=== PATIENT | male | born 1935 | race Caucasian/White ===

== ENCOUNTER → 2023-10-17 14:30 | Outpatient (REF) | payer OTHER, SELFPAY | LOC: DHCBS MAIN 14:30 | PROVIDERS: ATTENDING PHYSICIAN Internal Medicine Cardiovascular Disease; FAMILY PHYSICIAN Internal Medicine Gastroenterology | DX: I47.29 Other ventricular tachycardia (principal); I45.10 Unspecified right bundle-branch block; I34.0 Nonrheumatic mitral (valve) insufficiency | CPT/HCPCS: 93306 ==

== ENCOUNTER 2024-07-16 08:22 | Emergency (ER) | payer OTHER, SELFPAY ==
--- NOTE | 2024-07-16 08:25 | ED.GENMED ---
History of Present Illness
General
Chief Complaint: Fall
Time Seen by Provider: 07/16/24 08:24
History of Present Illness
History of Present Illness:
TIME OF INITIAL ENCOUNTER: 8:30 AM
HPI: The patient has a history of cerebral palsy and Parkinson's and normally uses a walker. Overnight, he tripped and fell while that he feels related to uneven quan. This morning he was unable to still get back up and has been having low
back pain. was unable to get him up today and EMS was called. EMS did get him up and he was able to walk with a walker before getting into the ambulance.
EXAM:
GENERAL: Well appearing in no distress
CERVICAL SPINE: No midline c-spine tenderness with excellent AROM
HEAD: No evidence of craniofacial trauma
CHEST: No chest wall tenderness, normal heart sounds
LUNGS: Equal lung sounds, no respiratory distress
ABDOMEN: No abdominal tenderness, no peritoneal signs
BACK: No midline T-spine tenderness, there is some very mild upper L-spine tenderness, there is no coccygeal tenderness
EXTREMITIES: Chronic deformity noted to the left upper extremity, no new trauma, decreased active range of motion left greater than right upper extremities
NEURO: Decreased strength equally in all extremities, some mild cognitive deficits noted,
NUMBER AND COMPLEXITY OF PROBLEMS ADDRESSED AT THE ENCOUNTER
� Chronic conditions affecting care: Cerebral palsy, Parkinson's,
� Acute Exacerbation and/or Progression of Chronic Illness: This is an acute problem
� Differential Diagnosis includes: Lumbar spine fracture, intracranial hemorrhage, minor head injury, anemia, rhabdomyolysis
AMOUNT AND/OR COMPLEXITY OF DATA TO BE REVIEWED AND ANALYZED
� I performed an independent evaluation of and my interpretation is:
EKG:
CT: CT shows no acute abnormality, no change from prior
X-rays: L1 and L4 compression fractures noted
Laboratory Studies: White count 11.8, hemoglobin 14.5, BUN 38, CK is 158
Other:
� Review of other/old records: I reviewed records, the patient was hospitalized for an acute urinary tract infection this past July
� Clinical information was obtained by an independent historian: I spoke to EMS upon patient arrival
� Prescriptions/Medications Considered but not given:
� Further testing considered but not performed:
RISK OF COMPLICATIONS AND/OR MORBIDITY OR MORTALITY OF PATIENT MANAGEMENT
� Social determinants of health affecting care: Uses a walker at home
� Discussion with other providers: I have asked physical therapy for consultation
� Escalation of care including admission/observation vs risk of discharge considered: The patient has no neck pain and I was able to clear the neck clinically�c-collar removed upon arrival. Patient thinks that he struck his head
and is on [facility] send for CT imaging of the brain. Will also check x-rays as he does have some upper low back pain in the midline however overall appears fairly comfortable. Will also check CK for evaluation of rhabdomyolysis as he was on
the ground for about 10 hours.
ANY OTHER UPDATES:
10:05 AM: I reassessed patient. Will give Tylenol for pain as he is found to have L1 and L4 superior endplate compression fractures.
12 PM: Physical therapy recommended that he not be discharged and not go home and recommended him go to a SNF. However we did have case management involved and the patient strongly prefers outpatient management. I spoke to the son, Sumit Leon, over
the phone who wants to respect his father's wishes. Planning on discharging back to home and case management is arranging for home services.
Past History
Past History
ED Past Medical History: Other (cerebral palsy)
ED Past Surgical History: Other (pacemaker)
Patient has exhibited threatening behavior?: No
Social History
Tobacco: Non-smoker
Alcohol: None
Drug: None
Personal:
Living: assisted living
Phy Exam
Physical Exam
Physical Exam:
See HPI
Course
Orders/Labs/Results
Orders:
Orders
07/16/24 08:35
CR Lumbar Spine 2 Or 3 Views Urgent
Reason For Exam: trauma pain
CR Pelvis - 1 Or 2 Views Urgent
Comment:
Reason For Exam: trauma pain
07/16/24 08:36
CT Head W/o Iv Contrast Urgent
Comment:
Reason For Exam: head injury eliquis
07/16/24 08:55
Basic Metabolic Panel Urgent
Complete Blood Count/With Diff Urgent
Total CK [Creatine Phosphokinase] Urgent
07/16/24 10:00
Acetaminophen [Tylenol] 1,000 mg PO NOW STA
07/16/24 10:01
Physical Therapy Consult [Pt Eval And Treat] Urgent
Activity Level: Ambulate
With Assistance
07/16/24 10:27
0.9% Sodium Chloride 500 ml [Nss] 500 ml IV BOLUS
07/16/24 10:40
Case Management Consult ONCE
Case Management Consult: Discharge Planning
07/16/24 12:18
Case Management Consult ONCE
Case Management Consult: VN/Home Care
Abnormal Lab Results
07/16/24
08:55
WBC 11.8 H 10^3/uL
(4.8-10.8)
RBC 4.64 L 10^6/uL
(4.70-6.10)
MCV 96.3 H fL
(80.0-94.0)
MCH 31.3 H pg
(27.0-31.0)
MCHC 32.4 L g/dL
(33.0-37.0)
MPV 10.5 H fL
(7.4-10.4)
Absolute Neuts (auto) 9.5 H 10^3/uL
(1.4-6.5)
Absolute Monos (auto) 0.9 H 10^3/uL
(0.1-0.6)
Neutrophils % 80.5 H %
(42.2-75.2)
Lymphocytes % 11.1 L %
(20.5-51.1)
BUN 38 H mg/dl
(9-20)
07/16/24 08:55
07/16/24 08:55
Vital Signs
Initial and Last Documented VS:
Initial Vital Signs
Temp Pulse Resp BP Pulse Ox
36.5 C 57 16 168/84 98
07/16/24 08:28 07/16/24 08:28 07/16/24 08:28 07/16/24 08:28 07/16/24 08:28
Last Documented Vital Signs
Temp Pulse Resp BP Pulse Ox
36.5 C 60 16 136/73 96
07/16/24 08:28 07/16/24 10:18 07/16/24 10:18 07/16/24 12:15 07/16/24 12:30
*Critical Care Note
Total Time (30-74mins, 75-104mins- exclusive of procedures): Not Applicable
ED Attending Note
-
Portions of this chart may have been created with voice recognition software.� Occasional wrong word or��sound alike� substitutions may have occurred due to the inherent limitations of voice recognition software.
Discharge Plan
Departure
Patient Disposition: Home (Routine Discharge)
Date of Disposition: 07/16/24
Time of Disposition: 12:18
Patient with high blood pressure during this ER visit?: Yes
Discharge Problem:
Compression fracture
Instructions: Preventing falls in adults
Prescriptions:
No Action
Refresh Classic (PF) 1.4-0.6 % Dropperette
1 drp BOTH EYES QIDPRN PRN (Reason: dry eyes)
mirabegron [Myrbetriq] 50 mg tablet extended release 24 hr
50 mg PO Q48H
carvedilol 3.125 mg tablet
3.125 mg PO BID
hyoscyamine sulfate 0.125 mg tablet,disintegrating
0.125 mg PO BID
carbidopa-levodopa 25-100 mg tablet
1 tab PO TID
multivitamin with folic acid [Tab-A-Keyana] 400 mcg tablet
1 tab PO DAILY
Eliquis 2.5 mg tablet
2.5 mg PO BID
Referrals:
UNKNOWN - PT NOT,INTERVIEWE [Unknown Provider] -
Activity Restrictions/Additional Instructions:
Basic blood work is relatively unremarkable. However x-rays do show compression fracture at L1 and L4 however these only involve the superior endplate. The CAT scan of the brain shows no bleeding. We spoke to physical therapy who initially
recommended rehab however since he wanted to go home, we are trying to arrange for close outpatient care with PT/OT and visiting nursing.
Interventions
Interventions:
*Risk Screen - Suicide Last Done: 07/16/24 08:28
*General Assessment Last Done: 07/16/24 08:28
*Neglect/Abuse Screening Last Done: 07/16/24 08:28
ED- Fall Risk Assessment Last Done: 07/16/24 09:05
*ED COVID-19 Vaccine History Last Done: 07/16/24 09:05
ED-Musculoskeletal Assessment Last Done: 07/16/24 09:05
ED- Neurological Assessment Last Done: 07/16/24 09:05
ED-Skin Assessment Last Done: 07/16/24 09:05
Discharge Date and Time
Print Language: HONDURAN
[2024-07-16 08:28] VITALS: BP 168/84
[2024-07-16 09:00] VITALS: BP 122/98
[2024-07-16 09:04] VITALS: BMI 25.9
[2024-07-16 09:05] LABS: % Basophils 0.2 % (0-2); % Eosinophils 0.3 % (0-6); % Immature Granulocytes 0.3 % (0-0.5); % Lymphocytes 11.1 % (20.5-51.1); % Monocytes 7.6 % (1.7-9.3); % Neutrophils 80.5 % (42.2-75.2); Absolute Lymphocytes 1.3 10^3/uL (1.2-3.4); Absolute Monocytes 0.9 10^3/uL (0.1-0.6); Absolute Neutrophils 9.5 10^3/uL (1.4-6.5); Hematocrit 44.7 % (39.0-52.0); Hemoglobin 14.5 g/dL (13.0-18.0); Mean Corp Hgb Conc. 32.4 g/dL (33.0-37.0); Mean Corpuscular Hgb 31.3 pg (27.0-31.0); Mean Corpuscular Volume 96.3 fL (80.0-94.0); Mean Platelet Volume 10.5 fL (7.4-10.4); Nucleated Red Blood Cells % 0 % (-); Platelet Count 180 10^3/uL (130-400); Red Blood Cell Count 4.64 10^6/uL (4.70-6.10); Red Cell Dist. Width 12.8 % (11.5-14.5); White Blood Cell Count 11.8 10^3/uL (4.8-10.8)
[2024-07-16 09:17] LABS: Blood Urea Nitrogen 38 mg/dl (9-20); Calcium 9.3 mg/dl (8.4-10.2); Carbon Dioxide 28 mmol/L (22-30); Chloride 104 mmol/L (98-107); Creatine Phosphokinase 158 U/L (55-170); Estimated Creatinine Clearance 46 ml/min; Glucose 89 mg/dl (70-99); Potassium 4.4 mmol/L (3.5-5.1); Sodium 142 mmol/L (135-145); eGFR > 60.00
[2024-07-16] MEDS: TYLENOL 1000 MG PO (10:11)
[2024-07-16 10:15] VITALS: BP 152/79
[2024-07-16 10:18] VITALS: BP 152/79
[2024-07-16] MEDS: NSS 500 IV (10:47)
[2024-07-16 10:52] VITALS: BP 152/79; PULSE 52; O2SAT 98
[2024-07-16 12:15] VITALS: BP 136/73
--- NOTE | 2024-07-16 13:06 | CM ---
Received consult for discharge planning. Reviewed chart. Met with patient and his who was at bedside. Patient's stated that patient lives with her in an apartment which is all one floor no steps to enter. Patient uses a walker for short
distances within the apartment and a w/c for long distances in the community. Patient also has a commode and a shower chair. Patient needs assistance with all ADLs, personal care, dressing and bathing. Patient's and 6 children who are local
assist with reports developer, cook, clean and do laundry. Patient has been to SNF in the past at [facility]. He has also been to [facility]. Patient is currently on Palliative Care through .
Patient has had VN in the past through both [facility] and through .
Patient has a prescription plan and uses, [facility] for all of his medications.
Patient's stated that as long as patient is medically stable, she would like for patient to return home. Reviewed PT and relayed indication on behalf of them for SNF. Patient's stated that patient is basically at baseline and often just
sits in a recliner all day that goes to a standing position.
Spoke with ED MD who stated that he would confirm that patient's son is ok with that plan and if so, patient can return home with VN. Patient's son stated that he would like for patient to return home and was agreeable with VN.
Made referral to Violeta from VN who stated that she would meet with patient and his .
Patient's advised to update RN or MD if she changes her mind regarding bringing patient back home with her.
Plan: Case management will continue to follow and assist with discharge planning. Home with VN.
--- NOTE | 2024-07-16 13:11 | VNURNOTE ---
Home Health Liaison met with patient, , and son at bedside to discuss [facility] nurse/therapy, visits, schedule and homebound status. All are agreeable and understand that visits at home will be 2-3 x per week to assess and teach medical management.
[facility] brochure provided with contact information. All are aware that [facility] will contact them for start of care in 1-2 days after discharge from .
[facility] referral completed in [facility].
== END 2024-07-16 13:23 | disposition home or self-care (01) ==
LOC: EMR 08:22
PROVIDERS: EMERGENCY PHYSICIAN Emergency Medicine; FAMILY PHYSICIAN Family Medicine
DX: S32.018A Other fracture of first lumbar vertebra, initial encounter for closed fracture (principal); S32.048A Other fracture of fourth lumbar vertebra, initial encounter for closed fracture; W19.XXXA Unspecified fall, initial encounter; G80.8 Other cerebral palsy; G20.A1 Parkinson's disease without dyskinesia, without mention of fluctuations; Z79.01 Long term (current) use of anticoagulants; Z95.0 Presence of cardiac pacemaker
CPT/HCPCS: 99284; 96360; 70450; 72100; 72170; 80048; 82550; 85025

== ENCOUNTER 2024-07-20 23:02 | Inpatient (IN) | payer OTHER, SELFPAY ==
[2024-07-20 18:26] VITALS: BP 148/77
[2024-07-20 19:00] VITALS: BP 173/77
[2024-07-20 19:03] VITALS: BMI 25.4
[2024-07-20 19:07] LABS: % Basophils 0.2 % (0-2); % Eosinophils 0.2 % (0-6); % Immature Granulocytes 0.4 % (0-0.5); % Lymphocytes 9.9 % (20.5-51.1); % Monocytes 8.6 % (1.7-9.3); % Neutrophils 80.7 % (42.2-75.2); Absolute Immature Granulocytes 0.1 10^3/uL (0-0.05); Absolute Lymphocytes 1.3 10^3/uL (1.2-3.4); Absolute Monocytes 1.2 10^3/uL (0.1-0.6); Absolute Neutrophils 10.9 10^3/uL (1.4-6.5); Hemoglobin 14.2 g/dL (13.0-18.0); Mean Corp Hgb Conc. 32.3 g/dL (33.0-37.0); Mean Corpuscular Volume 96.1 fL (80.0-94.0); Mean Platelet Volume 10.3 fL (7.4-10.4); Nucleated Red Blood Cells % 0 % (-); Platelet Count 212 10^3/uL (130-400); Red Blood Cell Count 4.58 10^6/uL (4.70-6.10); Red Cell Dist. Width 13.1 % (11.5-14.5); White Blood Cell Count 13.5 10^3/uL (4.8-10.8)
[2024-07-20 19:16] LABS: INR 1.23; PT 15.8 Sec (11.4-14.6)
[2024-07-20 19:17] LABS: APTT 28.4 Sec (23.4-35.0)
[2024-07-20 19:24] LABS: ALT (SGPT) 25 U/L (0-50); AST (SGOT) 31 U/L (17-59); Albumin 4.1 g/dl (3.5-5.0); Alkaline Phosphatase 91 U/L (38-126); Blood Urea Nitrogen 29 mg/dl (9-20); Carbon Dioxide 26 mmol/L (22-30); Chloride 105 mmol/L (98-107); Estimated Creatinine Clearance 51 ml/min; Glucose 79 mg/dl (70-99); Potassium 4.7 mmol/L (3.5-5.1); Sodium 143 mmol/L (135-145); Total Bilirubin 1.6 mg/dl (0.2-1.3); Total Protein 6.7 g/dl (6.3-8.2); eGFR > 60.00
[2024-07-20 19:34] LABS: Troponin I 0.061 ng/ml
--- NOTE | 2024-07-20 19:54 | ED.GENMED ---
History of Present Illness
General
Chief Complaint: Change in Mental Status
Source: patient, records and family
Exam Limitations: altered mental status and developmental stage
Time Seen by Provider: 07/20/24 19:22
Nursing documentation reviewed up to this point in time: agreed with
History of Present Illness
History of Present Illness:
88-year-old male cerebral palsy Parkinson's accompanied by 6 family members who are involved in his care, apparently was seen here about a week ago had a fall had a lumbar compression fracture it was suggested that he go to rehab he and his son
refused was sent home since that he has been doing well has been confused hallucinating not getting out of bed very well, no new meds other than Eliquis, no dysuria frequency no fevers, apparently fell today but did not hit his head was seen at
[facility] center and discharge, apparently later in the day there is question that his speech was abnormal I spoke to the PCP referred here for evaluation my evaluation he is pleasant cooperative no obvious focal deficit
Past History
Past History
ED Past Medical History: Other (cerebral palsy Parkinson's)
ED Past Surgical History: Other (pacemaker)
Patient has exhibited threatening behavior?: No
Social History
Tobacco: Non-smoker
Alcohol: None
Drug: None
Personal:
Living: with family
Employment: Not employed
Review of Systems
Review of Systems
All Other Systems: Not applicable
Constitutional: Denies fever
EENT: Reports no symptoms
Respiratory: Reports no symptoms
Cardiac: Reports no symptoms
ABD/GI: Reports no symptoms
: Reports no symptoms
Neurological: Reports weakness; Denies headache
Hematologic/Lymphatic: Reports other (Some scratches on his lower extremity)
Phy Exam
Physical Exam
Physical Exam:
Physical Exam
General: Pleasant elderly male no overt signs of head or neck trauma
Neck: No tongue bite no posterior neck
Heart: Regular
Lungs: no acute respiratory distress. clear bilaterally
Abdomen: Not tender
Neuro: Contracted moves all extremity
Skin: Venous stasis changes without cellulitis
Psychiatric: cooperative
Extremities: Trace edema
Course
Orders/Labs/Results
Orders:
Orders
07/20/24 18:41
Electrocardiogram (*1) Urgent
Reason for Study: Other
Other Reason for Exam: Possible Stroke
CT Head W/o Iv Contrast Urgent
Comment:
Reason For Exam: weakness
EKG- Treatment ONCE
07/20/24 18:59
PTT Urgent
Prothrombin Time Urgent
07/20/24 19:00
Complete Blood Count/With Diff Urgent
Comprehensive Metabolic Panel Urgent
NT-proBNP Urgent
Comment: ADD ON
Troponin I Urgent
07/20/24 19:03
CT Cervical Spine W/o Iv Contr Urgent
Comment:
Reason For Exam: fall
07/20/24 19:47
Add On- LAB Urgent
Tests Added?: pBNP
CR Chest - 2 Views Urgent
Comment:
Reason For Exam: edema cnfusion
07/20/24 20:12
Urinalysis Reflex To Culture Urgent
Date Specimen was Collected: 07/20/24
Time Specimen was Collected: 19:55
Urine Microscopic Reflex Cult Urgent
Urine Culture Urgent
LAYNE Source: U
Specimen Description:
Date Specimen was Collected: 07/20/24
Time Specimen was Collected: 19:55
07/20/24 20:58
Speech Screening from [facility] Routine
07/20/24 21:06
Aztreonam [Azactam] 1,000 mg IV NOW STA
07/20/24 22:00
Flush (0.9% Sodium Chloride) [Flush (Nss)] See Dose Instructions IV PER PROTOCOL
Abnormal Lab Results
07/20/24 07/20/24 07/20/24
18:59 19:00 20:12
WBC 13.5 H 10^3/uL
(4.8-10.8)
RBC 4.58 L 10^6/uL
(4.70-6.10)
MCV 96.1 H fL
(80.0-94.0)
MCHC 32.3 L g/dL
(33.0-37.0)
Abs Immat Gran (auto) 0.1 H 10^3/uL
(0-0.05)
Absolute Neuts (auto) 10.9 H 10^3/uL
(1.4-6.5)
Absolute Monos (auto) 1.2 H 10^3/uL
(0.1-0.6)
Neutrophils % 80.7 H %
(42.2-75.2)
Lymphocytes % 9.9 L %
(20.5-51.1)
PT 15.8 H Sec
(11.4-14.6)
BUN 29 H mg/dl
(9-20)
Total Bilirubin 1.6 H mg/dl
(0.2-1.3)
Troponin I 0.061 H* ng/ml
Urine Ketones Trace A
(Negative)
Ur Occult Blood Reflex 1+ A
(Negative)
Urine Nitrite (Reflex) Positive A
(Negative)
Leukocyte Esterase Rfl 2+ A
(Negative)
Urine WBC (Reflex) 16-20 A /HPF
(0-5)
Urine Bacteria (Reflex) Moderate A
(Negative)
07/20/24 19:00
07/20/24 19:00
Vital Signs
Initial and Last Documented VS:
Initial Vital Signs
Temp Pulse Resp BP Pulse Ox
98.5 F 57 16 148/77 96
07/20/24 18:26 07/20/24 18:26 07/20/24 18:26 07/20/24 18:26 07/20/24 18:26
Last Documented Vital Signs
Temp Pulse Resp BP Pulse Ox
98.5 F 55 13 173/77 93
07/20/24 19:05 07/20/24 20:30 07/20/24 20:30 07/20/24 19:00 07/20/24 20:30
MDM/Problems Addressed
Differential Diagnosis Includes:
Trauma, UTI electrolyte abnormality deconditioning aging process seizure
MDM/Problems Addressed:
Mental status change
Chronic conditions affecting care: Neurological disorder
Acute Exacerbation and/or Progression of Chronic Illness: Neurological disorder
*Critical Care Note
Total Time (30-74mins, 75-104mins- exclusive of procedures): Not Applicable
Update Note
Update Note:
Update chest x-ray noted proBNP pending chest x-ray report pending urine noted prior urine culture noted medication allergies noted at this point I believe will be prudent admitted to the hospital with decreased high risk for falling need rehab at
some point reviewed with family previous
ED Attending Note
-
Portions of this chart may have been created with voice recognition software.� Occasional wrong word or��sound alike� substitutions may have occurred due to the inherent limitations of voice recognition software.
Discharge Plan
Departure
Patient Disposition: Admit
Date of Disposition: 07/20/24
Time of Disposition: 20:33
Admit to: Med/Surg
Presentation/result/management discussed w/ accepting MD/DO: Hospitalist
Patient with high blood pressure during this ER visit?: No
Condition: Fair
Discharge Problem:
Acute UTI, Weakness, Parkinsons disease, CP (cerebral palsy)
Prescriptions:
No Action
Refresh Classic (PF) 1.4-0.6 % Dropperette
1 drp BOTH EYES QIDPRN PRN (Reason: dry eyes)
mirabegron [Myrbetriq] 50 mg tablet extended release 24 hr
50 mg PO Q48H
carvedilol 3.125 mg tablet
3.125 mg PO BID
hyoscyamine sulfate 0.125 mg tablet,disintegrating
0.125 mg PO BID
carbidopa-levodopa 25-100 mg tablet
1 tab PO TID
multivitamin with folic acid [Tab-A-Keyana] 400 mcg tablet
1 tab PO DAILY
Eliquis 2.5 mg tablet
2.5 mg PO BID
Referrals:
Patrick Puentes MD [Family Provider] -
Interventions
Interventions:
*Risk Screen - Suicide Last Done: 07/20/24 18:26
*General Assessment Last Done: 07/20/24 18:26
*Neglect/Abuse Screening Last Done: 07/20/24 18:26
ED- Fall Risk Assessment Last Done: 07/20/24 18:26
*ED COVID-19 Vaccine History Last Done: 07/20/24 18:26
ED- Neurological Assessment Last Done: 07/20/24 18:48
ED Swallowing Screen Last Done: 07/20/24 20:57
Discharge Date and Time
Print Language: FRENCH
[2024-07-20 20:21] LABS: Urine Albumin Trace (Neg - Trace); Urine Bilirubin Negative (Negative); Urine Character Slightly Cloudy (Clear); Urine Color Yellow; Urine Glucose Negative (Negative); Urine Ketone Trace (Negative); Urine Leukocyte 2+ (Negative); Urine Nitrite Positive (Negative); Urine Occult Blood 1+ (Negative); Urine Specific Gravity 1.015 (<1.030); Urine Urobilinogen Negative (Neg - 1+)
[2024-07-20 20:27] LABS: Urine Mucus Few; Urine Red Blood Cell 0-2 /HPF (0-2); Urine Squamous Cell 0-2 /LPF (Few)
[2024-07-20 20:28] LABS: Urine Bacteria Moderate (Negative); Urine White Cell 16-20 /HPF (0-5)
[2024-07-20 20:35] LABS: NT-proBNP 7720 pg/ml
[2024-07-20 20:38] VITALS: BP 135/93
[2024-07-20 21:00] VITALS: BP 144/97
[2024-07-20] MEDS: AZACTAM 1000 MG IV (21:13)
--- NOTE | 2024-07-20 21:39 | HPS.HSE ---
Family Physician
-
Family Physician: Patrick Puentes
Chief Complaint
-
Increased hallucinations, increased memory impairment from baseline
History of Present Illness
88-year-old male from home who was seen in the ED approximately 1 week ago after a fall suffering a lumbar compression fracture at that time it was recommended he go to rehab, but his the pt refused and wanted his son to take him home. Since
being at home he has had increased hallucinating from his baseline daily along with increased memory impairment from his baseline daily. The patient is not currently hallucinating during my exam he is oriented to president Biden, year 2023, and
[facility]. His family reports he fell today ,but did not hit his head he was seen at [facility] and discharged there was question about later today that his speech was abnormal. ED physician spoke with patient's PCP
about current ER visit. At baseline he has hallucinations off and on during the week due to parkinsons disease. He also has baseline memory impairment due to advancing Parkinson's. According to his Xiang he was diagnosed 1 week ago with
paroxysmal A-fib and was placed on Eliquis 2.5 mg twice daily by Dr. JODI Pino from [facility] cardiology he was already on rate control medication with carvedilol 3.125 mg twice daily.
He has past medical history of paroxysmal A-fib Dx June 2024, cerebral palsy affecting left side with left hand wrist contracture and contracture at shoulder level 45 degrees, left leg weakness , Parkinson's disease with chronic oral secretions,
hallucinations weekly, chronic ambulatory dysfunction with multiple falls, intertrochanteric hip fracture status post gamma nail placement 08/16/2022 Dr. 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
block second-degree, RBBB, HTN BPH, renal calculi, chronic ambulatory dysfunction uses walker at baseline, left
Medical History
Past Medical History
Past Medical History: Reports Other
Additional Past Medical History:
A-fib Dx 07/15/2024 by [facility] cardiology Dr. JODI Pino
Cerebral palsy affecting left side with left hand wrist contracture and contracture at shoulder level 45 degrees, left leg weakness
Chronic oral secretions secondary to Parkinson's
History of daily hallucinations due to Parkinson's disease
Chronic ambulatory dysfunction with chronic FALLS-uses walker at baseline
left intertrochanteric hip fracture status post gamma nail placement 08/16/2022 Dr. Leno Caballero
L1, L4 compression fractures secondary to fall on 07/16/2024
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
Chronic RBBB
HTN
BPH
renal calculi
Past Surgical History: Reports Other
Additional Past Surgical History:
left thumb surgery
throat tumor
testcile removed
Left cataract excration
pacemaker
Prostatectomy
left intertrochanteric hip fracture status post gamma nail placement 08/16/2022 Dr. Leno Caballero
L1, L4 compression fractures secondary to fall on 07/16/2024
Social History
Tobacco: Non-smoker
Alcohol: None
Drug: None
Personal:
Living: With Family
Employment: Retired
Family History
Family History: Not pertinent
Allergies / Home Medications
Allergies reflects when Allergies were last updated in Eponym.
Home Medications with original date entered in Eponym
Allergy/Medication List:
Allergies
Allergy/AdvReac Type Severity Reaction Status Date / Time
house dust Allergy Unknown Verified 07/20/24 18:26
penicillin V Allergy 'unsure of Verified 07/20/24 18:26
reaction'
pollen extracts Allergy Unknown Verified 07/20/24 18:26
Home Medications
polyvinyl alcohol-povidone (PF) 1.4 %-0.6 % eye drops in a dropperette (Refresh Classic (PF)) 1 drp BOTH EYES QIDPRN PRN dry eyes 10/30/22
mirabegron 50 mg tablet,extended release 24 hr (Myrbetriq) 50 mg PO Q48H Urinary issue 08/04/23
apixaban 2.5 mg tablet (Eliquis) 2.5 mg PO BID Blood Clot Prevention/Tx 07/16/24
carbidopa 25 mg-levodopa 100 mg tablet 1 tab PO TID parkinson's disease 07/16/24
carvedilol 3.125 mg tablet 3.125 mg PO BID heart disease/BP 07/16/24
hyoscyamine sulfate 0.125 mg disintegrating tablet 0.125 mg PO BID secretions 07/16/24
multivitamin with folic acid 400 mcg tablet (Tab-A-Keyana) 1 tab PO DAILY Supplement 07/16/24
Review of Systems
-
History Source: Patient and Family (xiang via phone )
A 12 point ROS was completed and negative except as noted: Yes
Constitutional: Reports Other (hallucination increased from baseline and memory impairment worse per ); Denies Fever or Chills
EENT: Denies Sore Throat or Runny Nose
Respiratory: Denies Cough or Trouble Breathing
Cardiac: Denies Chest Pain, Diaphoresis, Palpitations or Syncope
Abdomen/GI: Denies Abdominal Pain, Nausea, Vomiting, Diarrhea, Constipated, Bloody Stools or Black Stools
: Denies Dysuria, Frequency, Flank Pain, Incontinence, Difficulty Voiding or Urgency
Musculoskeletal: Reports Edema (trace bilat lower legs with superficial ulcerations ); Denies Joint Pain
Skin: Reports Other (trace bilat lower legs with superficial ulcerations ); Denies Itching or Rash
Neurological: Denies Dizzy, Headache or Weakness
Endocrine: Reports No Symptoms
Hematologic/Lymphatic: Reports No Symptoms
Psych: Reports Calm
Physical Exam
Vital Signs
Vital Signs
Temp Pulse Resp BP Pulse Ox
98.5 F 55 13 173/77 93
07/20/24 19:05 07/20/24 20:30 07/20/24 20:30 07/20/24 19:00 07/20/24 20:30
Physical Exam
General: Comfortable, Conversant and Other (pt oriented to name president, year and hospital location [facility], no active hallucinations); No Pain or Fever
HEENT: NormoCephalic, Anicteric, Moist mucous membranes, Jet Conjunctivae, No Ptosis and Other (bilat trapezius tender no verterbral tenderness)
Respiratory: Clear; No Wheezes, Rales or Rhonchi
Cardiac: S1/S2, Regular Rhythm and Peripheral Edema (trace bilat ); No Murmur, Rub or Gallop
Breast: Deferred by me
GI: Soft, Non Tender, Non Distended, Normal Bowel Sounds and No Hepatosplenomegaly
Rectal: Deferred by Provider
Genito-urinary: Deferred by me
Musculoskeletal: No Clubbing, No Cyanosis, Edema, Left Lower Extremity (trace bilat lower legs with superficial ulcerations ) and Edema, Right Lower Extremity (trace bilat lower legs with superficial ulcerations ); No Edema, Left Upper Extremity or
Edema, Right Upper Extremity
Skin: Warm, Dry and Ulcers (trace bilat lower legs with superficial ulcerations ); No Rash or Jaundice
Neuro: AO x 3 (pt oriented to name president, year and hospital location [facility], no active hallucinations), Nonfocal/grossly intact, Cranial Nerves Intact, No Sensory Deficits and Other (chronic contratures left hand left arm due to
cerbral palsy as child ); No Slurred Speech, Facial Droop, Tremors or Sedated
Psych: Calm
Laboratory Results
-
07/20/24 19:00
07/20/24 19:00
Laboratory Results
PT 15.8 Sec (11.4-14.6) H 07/20/24 18:59
INR 1.23 07/20/24 18:59
APTT 28.4 Sec (23.4-35.0) 07/20/24 18:59
Total Bilirubin 1.6 mg/dl (0.2-1.3) H 07/20/24 19:00
AST 31 U/L (17-59) 07/20/24 19:00
ALT 25 U/L (0-50) 07/20/24 19:00
Alkaline Phosphatase 91 U/L (38-126) 07/20/24 19:00
Troponin I 0.061 ng/ml H* 07/20/24 19:00
Data Reviewed
-
Diagnostic Radiology: Report Reviewed by me
Lab Data: Labs Reviewed by me
Impression/Plan
-
Impression/plan:
INPATIENT telemetry
#UTI with increased encephalopathy
#Chronic daily hallucinations and memory impairment from Parkinson's disease
#Chronic Overactive bladder
WBC 13.5 with left shift, 98.5, 173/77
Urine positive nitrates positive leukocytes WBC 16-20 moderate bacteria
-Follow urine culture
-IV Azactam given in ER patient with penicillin allergy unknown IV Rocephin and monitor for any allergic reaction
- continue myrbetriq
- follow cbc, bmp, urine culture
CXR: Small left pleural effusion. Adjacent atelectasis and/or pneumonia
#Acute on Chronic HALLUCINATIONS and ACUTE/CHRONIC MEMORY IMPAIRMENT 2/2 UTI
#Parkinson's disease with Chronic HALLUCINATIONS and CHRONIC MEMORY IMPAIRMENT
-Patient was treated at [facility] trauma center treated and discharged today 07/20/2024
Hallucinations worse due increased frequency -Baseline seeing people in the room not there or thinks a alliance party is going on in the room, seeing animals in room
-No appreciated hallucinations during my exam during my exam
-Neurochecks every 4 hours
#Nonischemic myocardial injury
-Troponin 0.061, will trend
EKG: Atrial sensed ventricular paced rhythm 55 bpm, no significant change was found from August 04, 2023
#Mechanical fall today with Neck pain resulting from Neck strain
-Tylenol, heat
-PT/OT consult
CT cervical spine without contrast: No fracture.
Multilevel discogenic, uncinate, and facet degenerative changes
Anterior listhesis of C4 relative to C5 measuring 1.7 mm and C5 relative to C6 measuring 3.[address] head: No acute intracranial abnormality
#Superficial ulcerations bilateral lower legs likely from falls
-Wash daily with soap and water apply nonstick dressing
-Consult wound care
#Paroxysmal A-fib Dx June 2024 (new diagnosis as of 1 week ago)
According to patient's was diagnosed 1 week ago approximately 07/13/2024
-Continue Coreg 3.125 mg twice daily
-Continue Eliquis 2.5 mg twice daily started a week ago
# Mechanical FALL with L1, L4 Compression fractures on 03/15/2024
-Pain control
-Recommend inpatient rehab as patient and family has attempted at home
#Chronic FALLS
#-Left intertrochanteric hip fracture status post gamma nail placement 08/16/2022 Dr. Leno Caballero
-uses walker at baseline
PT/OT/case management
#Cerebral palsy affecting left side hand with deformity
#HX Multiple experimental surgeries as child
#Chronic oral secretion due to Parkinson's disease
-cont hyoscymaine sulfate bid
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
2D echo 10/17/2023: EF 62%, small left ventricle with mild LVH, abnormal septal contraction, mild/moderate MR and dilated left atrium
#Chronic RBBB
#HTN
bp stable 144/97
-cont coreg 3.125 mg twice daily
#BPH
- s/p turp
-Continue myrbetriq
#Prostate cancer status post prostatectomy
#Renal calculi hx
#Insomnia
Melatonin hs prn
DVT prophylaxis
Eliquis 2.5 mg twice daily
Full code per pt
[2024-07-20 23:00] VITALS: BP 156/73
--- NOTE | 2024-07-20 23:07 | W.PN.UPDATE ---
Update Note
Progress Note Update
Patient seen in conjunction with TURNER SPLITTER MACHINE OPERATOR. I agree with or findings on history and physical exactly as detailed. I agree with the assessment and plan without reservation.
Briefly this is an 88-year-old with past medical history significant for atrial fibrillation on anticoagulation, sick sinus syndrome status post pacemaker placement, Parkinson's disease, hypertension, cerebral palsy who presents to the emergency
department following a fall at home today. She was seen at outside hospital and ruled out for acute trauma. He continued to also weakness and hallucinations more than usual so he was brought to the ED. No fevers or chills. Patient himself has
some difficulty with history but denies any syncopal episode. He denies having fevers or chills. He is unaware of any dysuria, frequency or nocturia. He has BPH sp TURP. He denies any diarrhea. He did report 3 bowel movements today. He denies
nausea or vomiting. He has no cough. Patient reports a one-time history of kidney stones but otherwise no urogenital illness. He has been denying any palpitations. He denies any changes in swelling in his legs with unclear.
ED workup shows that he is afebrile with a blood pressure of 140/90 and satting 90% on room air. He is ECG shows a ventricularly paced rhythm in the 50s with underlying atrial fibrillation. CT of the head shows no acute bleed, stroke, mass effect,
C-spine was unremarkable. Chest x-ray shows a small bilateral pleural effusion with atelectasis on the left side. His UA was markedly positive for bacteria leukocyte esterase and nitrites. BNP was elevated at 7000.
BUN creatinine and electrolytes are within normal range.
Assessment and plan
suspect infectious encephalopathy with worsening hallucinations. no acute intracranial process or metabolic derangement.
UTI
- admit to telemetry
- urine cultures
- no signs of prostatitis, instrumentation or stones. IV ceftriaxone for now
- culture if febrile.
- continue myrbetriq
- PT evaluation
Non ischemic myocardial injury suspected with trop of 0.06 and bump in BNP to 7000. Normal EF on most recent echo. Paced rhythm despite afib.
- aspirin
- continue apixaban for now
- trend troponin, if rising, will get cardiology and echo consult
- trace dependent edema so likely with chronic CHF, monitor weights.
AFIB - rate controlled
- continue coreg
- apixaban 2.5 bid
Code status - full code
[2024-07-20 23:54] LABS: Troponin I 0.078 ng/ml
[2024-07-21] VITALS (8 sets, daily range): BP systolic 110–160; BP diastolic 64–110; BMI 21.6
[2024-07-21] MEDS: NSS 1000 IV (01:10)
[2024-07-21] MEDS: ROCEPHIN 1000 MG IV (01:10)
[2024-07-21] MEDS: STERILE WATER FOR INJECTION 10 ML IV (01:10)
--- NOTE | 2024-07-21 02:15 | PTCARENOTE ---
Received pt from the ED via stretcher, pulled over to hospital bed. Pt AAOx1, participates in confused and tangential conversation. Pt with active hallucinations, speaking with people in his room who are not present and yelling and interacting with
a dog. Pt intermittently drowsy vs restless and trying to climb out of bed. Bed alarm and medsitter initiated. Placed on telemetry per order, V-paced on the monitor. Remainder of assessment as documented. IVF initiated per order, see MAR. Pt
oriented to unit and call stovall, updated on POC.
[2024-07-21] MEDS: HALDOL 1 MG IM (04:10)
--- NOTE | 2024-07-21 04:48 | PTCARENOTE ---
Pt remains confused and restless, difficult to reorient, consistently attempting to get out of bed. Attempting to utilize urinal, attends is dry. Pt unable to urinate in the urinal, bladder scanned for 106mL. Pt becoming increasingly agitated with
staff, yelling at staff and attempting to get out of bed to find his pants. D/w covering HOTEL ENGINEER, 1mg Haldol IM ordered and given, see MAR.
[2024-07-21 06:21] LABS: % Basophils 0.2 % (0-2); % Eosinophils 0.4 % (0-6); % Immature Granulocytes 0.4 % (0-0.5); % Lymphocytes 11.4 % (20.5-51.1); % Monocytes 9.7 % (1.7-9.3); % Neutrophils 77.9 % (42.2-75.2); Absolute Eosinophils 0.1 10^3/uL (0-0.7); Absolute Immature Granulocytes 0.1 10^3/uL (0-0.05); Absolute Lymphocytes 1.3 10^3/uL (1.2-3.4); Absolute Monocytes 1.1 10^3/uL (0.1-0.6); Absolute Neutrophils 8.7 10^3/uL (1.4-6.5); Hematocrit 40.7 % (39.0-52.0); Hemoglobin 13.6 g/dL (13.0-18.0); Mean Corp Hgb Conc. 33.4 g/dL (33.0-37.0); Mean Corpuscular Hgb 31.6 pg (27.0-31.0); Mean Corpuscular Volume 94.7 fL (80.0-94.0); Mean Platelet Volume 10.3 fL (7.4-10.4); Nucleated Red Blood Cells % 0 % (-); Platelet Count 198 10^3/uL (130-400); White Blood Cell Count 11.2 10^3/uL (4.8-10.8)
[2024-07-21 06:46] LABS: ALT (SGPT) 25 U/L (0-50); AST (SGOT) 31 U/L (17-59); Albumin 3.7 g/dl (3.5-5.0); Alkaline Phosphatase 87 U/L (38-126); Blood Urea Nitrogen 30 mg/dl (9-20); Calcium 8.6 mg/dl (8.4-10.2); Carbon Dioxide 22 mmol/L (22-30); Chloride 108 mmol/L (98-107); Estimated Creatinine Clearance 58 ml/min; Glucose 78 mg/dl (70-99); Potassium 4.1 mmol/L (3.5-5.1); Sodium 142 mmol/L (135-145); Total Bilirubin 1.8 mg/dl (0.2-1.3); Total Protein 6.2 g/dl (6.3-8.2); eGFR > 60.00
[2024-07-21 06:47] LABS: Troponin I 0.084 ng/ml
[2024-07-21 07:34] LABS: Vitamin B12 681 pg/ml (239-931)
[2024-07-21] MEDS: MYRBETRIQ EXTENDED RELEASE 50 MG PO (08:44)
[2024-07-21] MEDS: COREG 3.125 MG PO ×2 (08:44→21:17)
[2024-07-21] MEDS: SINEMET 25-100 1 TABLET PO ×3 (08:44→21:17)
[2024-07-21] MEDS: THERAGRAN 1 TABLET PO (08:44)
[2024-07-21] MEDS: ELIQUIS 2.5 MG PO ×2 (08:44→21:17)
--- NOTE | 2024-07-21 08:44 | VNURNOTE ---
Chart reviewed. Patient is current with [facility] nursing, PT, OT, STEAM TABLE WORKER. Will continue to follow hospital course and DC plans.
--- NOTE | 2024-07-21 11:48 | WOUNDNOTE ---
R LOWER ANTERIOR LEG
--- NOTE | 2024-07-21 11:48 | WOUNDNOTE ---
L MEDIAL LOWER LEG
--- NOTE | 2024-07-21 11:48 | WOUNDNOTE ---
L LATERAL LOWER LEG
--- NOTE | 2024-07-21 11:49 | WOUNDNOTE ---
L 2ND TOE DORSAL
--- NOTE | 2024-07-21 11:51 | WOUNDNOTE ---
WON RN note: Patient admitted with Acute UTI, weakness.
See H&P for complete history. Lives with at home.
PMH: Parkinson's, cerebral palsy, shingles L thigh(February), HTN, PM, UTI, L hip ORIF 2021, PM .
Wound Location and type/assessment: Patient admitted with: Abrasions to R lower leg and L 2nd toe, Elif at bedside confirmed patient had a recent fall. No drainage from abrasions or L lower leg blisters. L leg suspect venous, 2 intact
serous filled blisters. Skin on legs very dry, + palpable pedal pulses. Patient turned with minimal assist, Sacrum and heels are intact. states patient was on palliative care at home.
Appetite: confirmed patient had good appetite at home.
Pressure redistribution devices in place: On Accumax, turning schedule and if becomes difficult to turn recommend changing bed to [facility] [place] air bed. Air cushion on pillow under calves to offload heels.
Plan: Moisturized legs and feet with A&D ointment, will order mineral oil. R lower leg silicone foam. L leg Vaseline gauze and dry dressing. Applied foam adhesives to heels to protect. Will confirm orders with hospitalist and updated nurse Yonny.
Updated care plan and will follow as needed.
Note to case management of equipment requested for discharge: TBD
Recommend follow up at wound care center upon discharge.
--- NOTE | 2024-07-21 13:09 | CM ---
Reviewed the chart notes and spoke with the patient's spouse at the bedside. The patient is confused and unable to participate in the initial assessment. Per spouse, the patient and she reside in a first floor apartment with one step to enter.
The patient has a rolling walker, shower chair, bsc, and shower rail. The patient at last discharge from the ED was signed on to [facility]. Patient is current with Palliative Care. The patient has been to [facility] and [facility] in the past. The patient's
spouse would like the patient to return to [place]. explained that the patient would need to meet qualifications for acute rehab. At present patient can not follow directions. The spouse confirmed the patient's pharmacy of choice is the [facility]. continues to be available to patient/family and is monitoring medical plan for needs at discharge.
Plan: Discharge plans will depend on the patient's progress.
--- NOTE | 2024-07-21 13:26 | W.PN.HOSP.TC ---
Today's Communication/Plan
-
see note
Assessment / Plan
Assessment / Plan
1. Acute toxic metabolic encephalopathy
Reported delirium/hallucination
-Multifactorial likely from hyoscyamine/UTI possible Hypoglycemia episode
-CT head at admission did not show any acute issues
-Discontinue further Levsin -strong antimuscarinic medication known to cause delirium/hallucination
-Further testing if clinically did not improve despite treating underlying causes of encephalopathy
2. UTI
h/o recurrent UTI
-UA showing moderate pyuria/bacteriuria
-Urine cs collected
-maintain on empiric daily Rocephin
3. Hypoglycemia
-Patient have decreased oral intake with mentation issues and have borderline low glucose number
-Maintain on D5 LR and do Accu-Cheks every 8 hour for next 24 to 48 hours
-Some of patient encephalopathy/lethargy may be explained by low glucose level as well
4. Parkinson's disease
-Patient require assistance, spouses care provider
-Was following Dr. Lara from neurology
-maintain on sinemet
-Continue IDDSI 6 diet, speech therapy evaluation ordered
5. Troponin elevation
-Nonischemic myocardial injury
6. Generalized weakness
Mechanical fall
-Patient having mechanical fall, discussed possible need of rehab as may not be safe at home
-Apparently patient family declined rehab placement from [facility]
7. Superficial lower extremity skin injury
-Wound care consulted
8. Paroxysmal A-fib Dx
-Diagnosed 1 week back
-Maintained on Coreg/Eliquis
Essential hypertension
Chronic right bundle branch block
Benign prostatic hyperplasia
History of cerebral palsy
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
History of prostate cancer status post prostatectomy
History of nephrolithiasis
Sleep disturbance
Full code
Eliquis
Total time spent : 52 mins
I personally saw and examined the patient.
I have reviewed all diagnostic interpretations and treatment plans as written.
Time includes patient management by me, time spent at the patients bedside, time to review lab and imaging results, discussing patient care, documentation in the medical record, and time spent with the family or caregiver and discussing care plan
with RN/Consultants.
Anticipated Discharge: 24 - 48 hours
Subjective/Interval History
-
Date of Service: July 21, 2024
patient sedated but waking up on verbal cue
afebrile in night
Objective Data
-
Labs:
Laboratory Results
07/21/24
05:52
WBC 11.2 H
Hgb 13.6
Hct 40.7
Plt Count 198
Sodium 142
Potassium 4.1
Chloride 108 H
Carbon Dioxide 22
BUN 30 H
Creatinine 0.8
Glucose 78
Calcium 8.6
Total Bilirubin 1.8 H
AST 31
ALT 25
Alkaline Phosphatase 87
Vital Signs:
Vital Signs
Temp Pulse Resp BP Pulse Ox
97.5 F 57 16 155/75 96
07/21/24 11:15 07/21/24 11:15 07/21/24 11:15 07/21/24 11:15 07/21/24 11:15
Review of Systems
-
Unable to obtain full review of systems at this time due to: Acuity
Physical Exam
-
General: Comfortable and Cachectic
HEENT: Negative Oxygen
Respiratory: Clear to Auscultation
Cardiac: Regular Rhythm and S1/S2; Negative Murmur or Rub
GI: Soft, Nontender and Nondistended
Musculoskeletal: No Edema
Neuro: Sedated
Psych: Calm
[2024-07-21] MEDS: D5LR 1000 IV (13:48)
--- NOTE | 2024-07-21 15:05 | PTOTSP ---
Dysphagia Evaluation
Suspect mild oral/pharyngeal dysphagia. Patient with dysphagia risk factors (i.e., Parkinson's with dementia; history of throat tumor surgery?). Chest x-ray with possible L PNA. reported patient on chopped diet at baseline with signs of
dysphagia with large bolus sizes/rapid intake. No prior PNAs.
Recommend:
1. L6 Soft and Bite Sized, Thin Liquids
2. Medications: as best tolerated
3. Strategies: upright to 90 degrees, full supervision, assistance as needed, small single sips/bites, slow rate, liquid washes for oral clearance
4. Oral care 3x daily
5. Consider video swallow study if concerned for aspiration component and to objectively assess swallow function
[2024-07-22] VITALS (7 sets, daily range): BP systolic 155–181; BP diastolic 77–92; BMI 20.9
[2024-07-22] MEDS: STERILE WATER FOR INJECTION 10 ML IV (00:15)
[2024-07-22] MEDS: ROCEPHIN 1000 MG IV (00:16)
[2024-07-22] MEDS: D5LR 1000 IV (04:14)
--- NOTE | 2024-07-22 04:43 | DOWNTIME ---
There was a [employer] Client Html Developer Downtime on 07/22/2024 from 0100 to 07/22/2024 at 0350. Downtime documentation of patient's care, including medication administrations, has been reconciled in the electronic record per guidelines. Refer to the
patient's paper chart under the miscellaneous tab to see printed paper medication records and downtime forms.
--- NOTE | 2024-07-22 05:01 | PTCARENOTE ---
Pt becoming increasingly agitated, screaming out 'HELP!' persistently over and over but when staff enters the room, agitation heightens and pt screams at staff to get out. Pt attempting to hit and kick staff during incontinence care. Pt swinging his
legs over the side rails and attempting to roll his torso over the side rail to get out of bed. Medsitter in place, however, pt is not redirectable via medsitter or staff. Pt with a recent lumbar fracture secondary to a fall, is a high fall risk
with ambulatory dysfunction at baseline. D/w covering BEAM SEALER, pt not a candidate for IM Haldol secondary to QTC, order obtained for b/l ankle soft restraints with 4 side rails. Restraints placed per order, music initiated for pt comfort, pt resting
comfortably in bed at this time. Medsitter and bed alarm remain in place.
[2024-07-22 08:16] LABS: % Basophils 0.2 % (0-2); % Eosinophils 1.6 % (0-6); % Immature Granulocytes 0.5 % (0-0.5); % Lymphocytes 16.7 % (20.5-51.1); % Monocytes 10.3 % (1.7-9.3); % Neutrophils 70.7 % (42.2-75.2); Absolute Eosinophils 0.1 10^3/uL (0-0.7); Absolute Lymphocytes 1.4 10^3/uL (1.2-3.4); Absolute Monocytes 0.9 10^3/uL (0.1-0.6); Absolute Neutrophils 6.1 10^3/uL (1.4-6.5); Hematocrit 40.3 % (39.0-52.0); Mean Corp Hgb Conc. 32.3 g/dL (33.0-37.0); Mean Corpuscular Hgb 31.3 pg (27.0-31.0); Mean Corpuscular Volume 96.9 fL (80.0-94.0); Mean Platelet Volume 10.5 fL (7.4-10.4); Nucleated Red Blood Cells % 0 % (-); Platelet Count 174 10^3/uL (130-400); Red Blood Cell Count 4.16 10^6/uL (4.70-6.10); White Blood Cell Count 8.6 10^3/uL (4.8-10.8)
[2024-07-22] MEDS: ELIQUIS 2.5 MG PO ×2 (09:10→19:56)
[2024-07-22] MEDS: COREG PO (09:10)
[2024-07-22] MEDS: SINEMET 25-100 1 TABLET PO ×3 (09:11→21:14)
[2024-07-22] MEDS: THERAGRAN PO (09:11)
[2024-07-22] MEDS: HYDROPHOR 1 APPLIC TOPICAL (09:11)
[2024-07-22 09:15] LABS: ALT (SGPT) 12 U/L (0-50); AST (SGOT) 31 U/L (17-59); Albumin 3.2 g/dl (3.5-5.0); Alkaline Phosphatase 67 U/L (38-126); Blood Urea Nitrogen 25 mg/dl (9-20); Calcium 8.2 mg/dl (8.4-10.2); Carbon Dioxide 25 mmol/L (22-30); Chloride 107 mmol/L (98-107); Estimated Creatinine Clearance 56 ml/min; Glucose 96 mg/dl (70-99); Potassium 3.7 mmol/L (3.5-5.1); Sodium 143 mmol/L (135-145); Total Protein 5.6 g/dl (6.3-8.2); eGFR > 60.00
--- NOTE | 2024-07-22 09:30 | PTOTSP ---
Speech Therapy f/u Note:
Pt with chronic risk factors of oropharyngeal dysphagia including Parkinson's with dementia, history of throat tumor surgery, CP, modified diet at baseline (likely d/t edentulous state), and caregiver report of signs of dysphagia with solids. Given
CXR with possible L PNA and observed L sided lean at baseline, recommend VSE to further assess oropharyngeal swallow function and r/o aspiration related PNA.
Recommend:
1. L6 Soft and Bite Sized, Thin Liquids
2. Medications: as best tolerated
3. Strategies: upright to 90 degrees, full supervision, assistance as needed, small single sips/bites, slow rate, liquid washes for oral clearance
4. Oral care 3x daily
5. Video swallow study to objectively assess swallow function
--- NOTE | 2024-07-22 09:40 | PTOTSP ---
Speech Language Pathology
VIDEOFLUOROSCOPIC SWALLOWING EXAMINATION (VSE) completed. Overall, pt with mild oropharyngeal dysphagia, which is likely baseline. No penetration/aspiration noted. Some pharyngeal residue, which cleared with subsequent swallows.
Recommend:
(1) Continue IDDSI Level 6 (soft/bite-sized) and thin liquids
(2) Aspiration precautions: sit upright, single sips, slow rate, occasional dry swallows with meals
(3) Meds whole with liquid
(4) SAP FICO BUSINESS ANALYST to sign off. Please reconsult as indicated
--- NOTE | 2024-07-22 10:29 | CM ---
Reviewed the chart notes. Patient continues with delirium, medsitter, and soft limb restraints last night. CM continues to be available to patient/family and is monitoring medical plan for needs at discharge.
Plan: Discharge plans will depend on the patient's progress. Family hoping for [facility]. Patient unable to follow commands.
--- NOTE | 2024-07-22 11:08 | W.PN.HOSP.TC ---
Today's Communication/Plan
-
see note
Assessment / Plan
Assessment / Plan
1. Acute toxic metabolic encephalopathy - Ongoing
Reported delirium/hallucination
-Multifactorial likely from hyoscyamine/UTI possible Hypoglycemia episode
-CT head at admission did not show any acute issues
-Discontinue further Levsin -strong antimuscarinic medication known to cause delirium/hallucination
-Further testing if clinically did not improve despite treating underlying causes of encephalopathy
-Remains sedated/somnolent, continue symptomatic care
2. Staphylococcal UTI
h/o recurrent UTI
-UA showing moderate pyuria/bacteriuria
-Urine cs collected
-change abx to vancomycin, allergic to penicillin.
3. Hypoglycemia
-Patient have decreased oral intake with mentation issues and have borderline low glucose number
-Maintain on D5 LR and do Accu-Cheks every 8 hour for next 24 to 48 hours
-Some of patient encephalopathy/lethargy may be explained by low glucose level as well
4. Parkinson's disease
-Patient require assistance, spouses care provider
-Was following Dr. Lara from neurology
-maintain on sinemet
-VSE done today
-Continue IDDSI 6 diet, speech therapy evaluation ordered
5. Troponin elevation
-Nonischemic myocardial injury
6. Generalized weakness
Mechanical fall
-Patient having mechanical fall, discussed possible need of rehab as may not be safe at home
-Apparently patient family declined rehab placement from [facility]
7. Superficial lower extremity skin injury
-Wound care consulted
8. Paroxysmal A-fib Dx
-Diagnosed 1 week back
-Maintained on Coreg/Eliquis
Essential hypertension
Chronic right bundle branch block
Benign prostatic hyperplasia
History of cerebral palsy
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
History of prostate cancer status post prostatectomy
History of nephrolithiasis
Sleep disturbance
Full code
Eliquis
Anticipated Discharge: 24 - 48 hours
Subjective/Interval History
-
Date of Service: July 22, 2024
Patient remains somewhat sedated
Required lower extremity restraints in the night for some agitation
Not hypoxic/afebrile in night
Mumbling incoherent words on physical stimuli
Objective Data
-
Labs:
Laboratory Results
07/22/24
07:02
WBC 8.6
Hgb 13.0
Hct 40.3
Plt Count 174
Sodium 143
Potassium 3.7
Chloride 107
Carbon Dioxide 25
BUN 25 H
Creatinine 0.8
Glucose 96
Calcium 8.2 L
Total Bilirubin 1.0
AST 31
ALT 12
Alkaline Phosphatase 67
Vital Signs:
Vital Signs
Temp Pulse Resp BP Pulse Ox
98.1 F 56 17 163/92 95
07/22/24 11:08 07/22/24 11:08 07/22/24 11:08 07/22/24 11:08 07/22/24 11:08
I&O
07/21/24 07/22/24 07/23/24
06:59 06:59 06:59
Intake Total 1380 / 1380
Output Total 150 / 150
Balance 1230 / 1230
Review of Systems
-
Unable to obtain full review of systems at this time due to: Dementia and Acuity
Physical Exam
-
General: Comfortable and Cachectic
HEENT: Negative Oxygen
Respiratory: Clear to Auscultation
Cardiac: Regular Rhythm and S1/S2; Negative Murmur or Rub
GI: Soft, Nontender and Nondistended
Musculoskeletal: No Edema
Neuro: Sedated and Other (mumbling words on physical touch)
Psych: Calm
--- NOTE | 2024-07-22 12:27 | PHA.VAN.IN ---
Assessment
- Assessment
Renal Function: Appears similar to baseline
Concomitant Antimicrobials: ceftriaxone
AUC Dosing Plan
- Dosing Variables
Dosing Weight (kg): 62
Dosing CrCl (ml/min): 56
Vd coefficient (L/kg): 0.7
- Empiric Dosing
Initial / Loading Dose: 1500mg - administration pending
Maintenance Regimen: Vanc 1000mg Q24H starting 07/23 06
Estimated AUC (mcg*h/mL): 464
Estimated Peak (mcg*h/mL): 32.7
Estimated Trough (mcg/ml): 10.1
Estimated Half Life (H): 13.6
- Monitoring
No levels ordered at this time: consider levels in next few days
Pharmacokinetics Vancomycin I
- -
Patient Age: 88
Patient Sex: Male
Vancomycin Day #: 1
Indication: Genito-Urinary Tract
Requesting Provider: Dr. Cynthia Duffy
Pertinent Antimicrobial Allergies:
penicillin - unsure of reaction
Height / Weight:
Height 5 ft 8 in
Actual Weight 62.188 kg
Pertinent Past Medical History: Parkinson's
- Vital Signs / Lab Results
Temp Pulse Resp BP Pulse Ox
98.1 F 56 17 163/92 95
07/22/24 11:08 07/22/24 11:08 07/22/24 11:08 07/22/24 11:08 07/22/24 11:08
Lab Results - Hematology
07/20/24 07/21/24 07/22/24
19:00 05:52 07:02
WBC 13.5 H 11.2 H 8.6
Lab Results - Chemistry
07/20/24 07/21/24 07/22/24
19:00 05:52 07:02
BUN 29 H 30 H 25 H
Creatinine 0.8 0.8 0.8
Estimated Creat Clear 51 58 56
Albumin 4.1 3.7 3.2 L
Lab Results - Urine
07/20/24
20:12
Urine Nitrite (Reflex) Positive A
Leukocyte Esterase Rfl 2+ A
Urine WBC (Reflex) 16-20 A
Ur Squamous Epith Cells 0-2
Urine Bacteria (Reflex) Moderate A
Microbiology Results
07/20/24 20:12 Urine Culture - Preliminary
Urine Staphylococcus species
[2024-07-22] MEDS: VANCOCIN 530 MG IV (14:25)
[2024-07-22 16:08] LABS: Glucose - Point of Care 135 mg/dl (70-99)
[2024-07-22] MEDS: COREG 3.125 MG PO (19:56)
[2024-07-23] VITALS (10 sets, daily range): BP systolic 114–170; BP diastolic 71–96; PULSE 56
[2024-07-23] MEDS: ROCEPHIN 1000 MG IV ×2 (00:03→23:56)
[2024-07-23] MEDS: STERILE WATER FOR INJECTION 10 ML IV ×2 (00:04→23:56)
[2024-07-23] MEDS: VANCOCIN 200 IV (06:03)
[2024-07-23] MEDS: ELIQUIS 2.5 MG PO ×2 (08:10→19:54)
[2024-07-23] MEDS: COREG 3.125 MG PO ×2 (08:10→19:54)
[2024-07-23] MEDS: THERAGRAN 1 TABLET PO (08:10)
[2024-07-23] MEDS: MYRBETRIQ EXTENDED RELEASE 50 MG PO (08:10)
[2024-07-23] MEDS: HYDROPHOR 1 APPLIC TOPICAL (08:10)
[2024-07-23] MEDS: SINEMET 25-100 1 TABLET PO ×3 (08:10→21:34)
[2024-07-23 08:21] LABS: Glucose - Point of Care 91 mg/dl (70-99)
--- NOTE | 2024-07-23 08:34 | PTCARENOTE ---
BP this AM is 170/84, pt in no apparent distress resting comfortably in bed at this time, primary RN made aware.
[2024-07-23 08:46] LABS: Hematocrit 37.3 % (39.0-52.0); Hemoglobin 12.9 g/dL (13.0-18.0); Mean Corp Hgb Conc. 34.6 g/dL (33.0-37.0); Mean Corpuscular Hgb 31.5 pg (27.0-31.0); Mean Corpuscular Volume 91.2 fL (80.0-94.0); Red Blood Cell Count 4.09 10^6/uL (4.70-6.10); Red Cell Dist. Width 13.1 % (11.5-14.5); White Blood Cell Count 9.7 10^3/uL (4.8-10.8)
[2024-07-23 08:47] LABS: % Basophils 0.4 % (0-2); % Eosinophils 2.4 % (0-6); % Immature Granulocytes 0.5 % (0-0.5); % Lymphocytes 18.2 % (20.5-51.1); % Monocytes 10.7 % (1.7-9.3); % Neutrophils 67.8 % (42.2-75.2); Absolute Eosinophils 0.2 10^3/uL (0-0.7); Absolute Immature Granulocytes 0.1 10^3/uL (0-0.05); Absolute Lymphocytes 1.8 10^3/uL (1.2-3.4); Absolute Neutrophils 6.6 10^3/uL (1.4-6.5); Nucleated Red Blood Cells % 0 % (-)
[2024-07-23 10:31] LABS: ALT (SGPT) 12 U/L (0-50); AST (SGOT) 22 U/L (17-59); Albumin 3.3 g/dl (3.5-5.0); Alkaline Phosphatase 62 U/L (38-126); Blood Urea Nitrogen 20 mg/dl (9-20); Calcium 8.5 mg/dl (8.4-10.2); Carbon Dioxide 22 mmol/L (22-30); Chloride 109 mmol/L (98-107); Estimated Creatinine Clearance 50 ml/min; Glucose 119 mg/dl (70-99); Potassium 3.7 mmol/L (3.5-5.1); Sodium 142 mmol/L (135-145); Total Bilirubin 0.7 mg/dl (0.2-1.3); Total Protein 5.8 g/dl (6.3-8.2); eGFR > 60.00
--- NOTE | 2024-07-23 11:02 | W.PN.HOSP.TC ---
Today's Communication/Plan
-
d/c planning for rehab
Assessment / Plan
Assessment / Plan
1. Acute toxic metabolic encephalopathy - Resolved
Reported delirium/hallucination - Resolved
-Multifactorial likely from hyoscyamine/UTI possible Hypoglycemia episode
-CT head at admission did not show any acute issues
-Symptoms likely related to Levsin -strong antimuscarinic medication known to cause delirium/hallucination
-Other potential factors playing role of UTI/Hypoglycemia
-Further testing if clinically did not improve despite treating underlying causes of encephalopathy
2. Staphylococcal UTI
h/o recurrent UTI
-UA showing moderate pyuria/bacteriuria
-Urine cs growing Staphylococcus hominis -based on susceptibility changed to doxycycline. Stop vancomycin
3. Hypoglycemia -resolved
-Patient have decreased oral intake with mentation issues and have borderline low glucose number
-No further episodes of hypoglycemia, discontinue Accu-Cheks
-D5LR stopped yesterday
4. Parkinson's disease
-Patient require assistance, spouses care provider
-Was following Dr. Lara from neurology
-maintain on sinemet
-cleared VSE
-Continue IDDSI 6 diet, speech therapy evaluation ordered
5. Troponin elevation
-Nonischemic myocardial injury
6. Generalized weakness
Mechanical fall
-Patient having mechanical fall, discussed possible need of rehab as may not be safe at home
-Apparently patient family declined rehab placement from [facility]
7. Superficial lower extremity skin injury
-Wound care consulted
8. Paroxysmal A-fib Dx
-Diagnosed 1 week back
-Maintained on Coreg/Eliquis
Essential hypertension
Chronic right bundle branch block
Benign prostatic hyperplasia
History of cerebral palsy
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
History of prostate cancer status post prostatectomy
History of nephrolithiasis
Sleep disturbance
Full code
Eliquis
d/c planing for snf rehab
Anticipated Discharge: Today
Subjective/Interval History
-
Date of Service: July 23, 2024
Resting comfortably in chair
Awake and oriented x 3
no major events in night
Objective Data
-
Labs:
Laboratory Results
07/23/24 07/23/24
05:58 09:55
WBC 9.7
Hgb 12.9 L
Hct 37.3 L
Plt Count
Sodium Cancelled 142
Potassium Cancelled 3.7
Chloride Cancelled 109 H
Carbon Dioxide Cancelled 22
BUN Cancelled 20
Creatinine Cancelled 0.9
Glucose Cancelled 119 H
Calcium Cancelled 8.5
Total Bilirubin Cancelled 0.7
AST Cancelled 22
ALT Cancelled 12
Alkaline Phosphatase Cancelled 62
Vital Signs:
Vital Signs
Temp Pulse Resp BP Pulse Ox
97.8 F 56 18 170/84 98
07/23/24 07:27 07/23/24 08:10 07/23/24 07:27 07/23/24 08:10 07/23/24 07:27
I&O
07/22/24 07/23/24 07/24/24
06:59 06:59 06:59
Intake Total 1380 / 1380 960 / 960
Output Total 150 / 150 1050 / 1050
Balance 1230 / 1230 -90 / -90
Review of Systems
-
Respiratory: Reports No Symptoms
Cardiac: Reports No Symptoms
Abdomen/GI: Reports No Symptoms
Physical Exam
-
General: Comfortable and Cachectic
HEENT: Negative Oxygen
Respiratory: Clear to Auscultation
Cardiac: Regular Rhythm and S1/S2; Negative Murmur or Rub
GI: Soft, Nontender and Nondistended
Musculoskeletal: No Edema
Neuro: Sedated and Other (mumbling words on physical touch)
Psych: Calm
[2024-07-23] MEDS: COZAAR 25 MG PO (12:13)
--- NOTE | 2024-07-23 12:18 | PTCARENOTE ---
Patient's BP this AM 170/84, repeat BP after AM coreg 169/85 HR 57. Patient states no concerns at this time, sitting up in chair after working with PT/OT. Tele removed per protocol, patient vpaced on monitor. B/L ankle restraints removed this AM at
0800, patient calm and cooperative with care and making no attempts to get up independently. Bed and chair alarm and medsitter in place. MD made aware of above, PO Cozaar ordered per MD and administered by this RN, PRN hydralazine with parameters
ordered.
--- NOTE | 2024-07-23 13:50 | PHA.VAN.FU ---
Vancomycin Assessment / Plan
- Assessment
Renal Function: Stable
WBC's are: WNL
In the past 24 hrs, patient has been: Afebrile
Concomitant Antimicrobials: ceftriaxone
- Dosing Plan
Continue: Vanc 1000mg Q24H
- Monitoring Plan
No level(s) ordered at this time: consider levels in next few days
- Follow Up
Pharmacy will continue to follow.
Vancomycin Follow UP
- -
Patient Age: 88
Patient Sex: Male
Vancomycin Day #: 2
Indication: Genito-Urinary Tract
Requesting Provider: Dr. Cynthia Duffy
Pertinent Antimicrobial Allergies:
penicillin - unsure of reaction
Height / Weight:
Height 5 ft 8 in
Actual Weight 62.188 kg
Pertinent Past Medical History: Parkinson's
- Vital Signs / Lab Results
Temp Pulse Resp BP Pulse Ox
97.8 F 57 16 169/85 95
07/23/24 11:57 07/23/24 12:13 07/23/24 11:57 07/23/24 12:13 07/23/24 11:57
Lab Results - Hematology
07/20/24 07/21/24 07/22/24
19:00 05:52 07:02
WBC 13.5 H 11.2 H 8.6
07/23/24
05:58
WBC 9.7
Lab Results - Chemistry
07/20/24 07/21/24 07/22/24
19:00 05:52 07:02
BUN 29 H 30 H 25 H
Creatinine 0.8 0.8 0.8
Estimated Creat Clear 51 58 56
Albumin 4.1 3.7 3.2 L
07/23/24 07/23/24
05:58 09:55
BUN Cancelled 20
Creatinine Cancelled 0.9
Estimated Creat Clear Cancelled 50
Albumin Cancelled 3.3 L
Microbiology Results
07/20/24 20:12 Urine Culture - Final
Urine Staphylococcus hominis
[2024-07-23] MEDS: APRESOLINE 10 MG IV (15:15)
[2024-07-24 03:26] VITALS: BP 164/75
[2024-07-24] MEDS: VANCOCIN 200 IV (05:19)
[2024-07-24] MEDS: APRESOLINE IV (05:19)
[2024-07-24 05:33] VITALS: BMI 22.1
[2024-07-24 06:07] VITALS: BP 137/83
[2024-07-24 07:40] VITALS: BP 114/81
[2024-07-24] MEDS: THERAGRAN 1 TABLET PO (08:42)
[2024-07-24] MEDS: COREG 3.125 MG PO ×2 (08:42→20:40)
[2024-07-24] MEDS: ELIQUIS 2.5 MG PO ×2 (08:42→20:40)
[2024-07-24] MEDS: SINEMET 25-100 1 TABLET PO ×3 (08:42→22:56)
[2024-07-24] MEDS: COZAAR 25 MG PO (08:42)
[2024-07-24] MEDS: HYDROPHOR 1 APPLIC TOPICAL (08:43)
--- NOTE | 2024-07-24 09:05 | CM ---
Reviewed the chart notes. Referral for [facility] sent via [facility] per patient's spouse's request. CM continues to be available to patient/family and is monitoring medical plan for needs at discharge.
Plan: Discharge to Acute vs SNF when medically stable and bed and auth obtained.
[2024-07-24 10:53] LABS: % Basophils 0.3 % (0-2); % Eosinophils 2.6 % (0-6); % Immature Granulocytes 0.3 % (0-0.5); % Lymphocytes 14.7 % (20.5-51.1); % Monocytes 9.4 % (1.7-9.3); % Neutrophils 72.7 % (42.2-75.2); Absolute Eosinophils 0.2 10^3/uL (0-0.7); Absolute Lymphocytes 1.4 10^3/uL (1.2-3.4); Absolute Monocytes 0.9 10^3/uL (0.1-0.6); Absolute Neutrophils 6.8 10^3/uL (1.4-6.5); Hematocrit 41.2 % (39.0-52.0); Hemoglobin 13.8 g/dL (13.0-18.0); Mean Corp Hgb Conc. 33.5 g/dL (33.0-37.0); Mean Corpuscular Hgb 31.9 pg (27.0-31.0); Mean Corpuscular Volume 95.4 fL (80.0-94.0); Mean Platelet Volume 10.5 fL (7.4-10.4); Nucleated Red Blood Cells % 0 % (-); Platelet Count 212 10^3/uL (130-400); Red Blood Cell Count 4.32 10^6/uL (4.70-6.10); White Blood Cell Count 9.3 10^3/uL (4.8-10.8)
[2024-07-24 11:00] LABS: ALT (SGPT) 11 U/L (0-50); AST (SGOT) 20 U/L (17-59); Albumin 3.6 g/dl (3.5-5.0); Alkaline Phosphatase 78 U/L (38-126); Blood Urea Nitrogen 22 mg/dl (9-20); Calcium 8.5 mg/dl (8.4-10.2); Carbon Dioxide 26 mmol/L (22-30); Chloride 105 mmol/L (98-107); Estimated Creatinine Clearance 53 ml/min; Glucose 110 mg/dl (70-99); Potassium 3.9 mmol/L (3.5-5.1); Sodium 143 mmol/L (135-145); Total Bilirubin 1.2 mg/dl (0.2-1.3); Total Protein 6.4 g/dl (6.3-8.2); eGFR > 60.00
[2024-07-24] MEDS: IMODIUM 2 MG PO (12:46)
[2024-07-24] MEDS: VIBRAMYCIN 100 MG PO ×2 (12:46→20:39)
--- NOTE | 2024-07-24 13:08 | W.PN.HOSP.TC ---
Today's Communication/Plan
-
discharge planning for snf rehab
medically cleared
Assessment / Plan
Assessment / Plan
1. Acute toxic metabolic encephalopathy - Resolved
Reported delirium/hallucination - Resolved
-Multifactorial likely from hyoscyamine/UTI possible Hypoglycemia episode
-CT head at admission did not show any acute issues
-Symptoms likely related to Levsin -strong antimuscarinic medication known to cause delirium/hallucination
-Other potential factors playing role of UTI/Hypoglycemia
-Further testing if clinically did not improve despite treating underlying causes of encephalopathy
2. Staphylococcal UTI
h/o recurrent UTI
-UA showing moderate pyuria/bacteriuria
-Urine cs growing Staphylococcus hominis -based on susceptibility changed to doxycycline. Stop vancomycin
3. Hypoglycemia -resolved
-Patient have decreased oral intake with mentation issues and have borderline low glucose number
-No further episodes of hypoglycemia, discontinue Accu-Cheks
-D5LR stopped at this point.
4. Parkinson's disease
-Patient require assistance, spouses care provider
-Was following Dr. Lara from neurology
-maintain on sinemet
-cleared VSE
-Continue IDDSI 6 diet, speech therapy evaluation ordered
5. Troponin elevation
-Nonischemic myocardial injury
6. Generalized weakness
Mechanical fall
-Patient having mechanical fall, discussed possible need of rehab as may not be safe at home
-Apparently patient family declined rehab placement from [facility]
7. Superficial lower extremity skin injury
-Wound care consulted
8. Paroxysmal A-fib Dx
-Diagnosed 1 week back
-Maintained on Coreg/Eliquis
Essential hypertension
Chronic right bundle branch block
Benign prostatic hyperplasia
History of cerebral palsy
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
History of prostate cancer status post prostatectomy
History of nephrolithiasis
Sleep disturbance
Full code
Eliquis
d/c planing for snf rehab
Anticipated Discharge: Today
Subjective/Interval History
-
Date of Service: July 24, 2024
feeling better
afebrile overnight
no other issues
Objective Data
-
Labs:
Laboratory Results
07/24/24
09:28
WBC 9.3
Hgb 13.8
Hct 41.2
Plt Count 212 D
Sodium 143
Potassium 3.9
Chloride 105
Carbon Dioxide 26
BUN 22 H
Creatinine 0.9
Glucose 110 H
Calcium 8.5
Total Bilirubin 1.2
AST 20
ALT 11
Alkaline Phosphatase 78
Vital Signs:
Vital Signs
Temp Pulse Resp BP Pulse Ox
98.3 F 69 17 114/81 98
07/24/24 07:40 07/24/24 08:42 07/24/24 07:40 07/24/24 08:42 07/24/24 11:31
I&O
07/23/24 07/24/24 07/25/24
06:59 06:59 06:59
Intake Total 960 / 960 580 / 580
Output Total 1050 / 1050 1780 / 1780
Balance -90 / -90 -1200 / -1200
Review of Systems
-
Respiratory: Reports No Symptoms
Cardiac: Reports No Symptoms
Abdomen/GI: Reports No Symptoms
Physical Exam
-
General: Comfortable and Cachectic
HEENT: Negative Oxygen
Respiratory: Clear to Auscultation
Cardiac: Regular Rhythm and S1/S2; Negative Murmur or Rub
GI: Soft, Nontender and Nondistended
Musculoskeletal: No Edema
Neuro: Sedated and Other (mumbling words on physical touch)
Psych: Calm
[2024-07-24 15:30] VITALS: BP 157/74
[2024-07-24 15:51] VITALS: BP 157/74; PULSE 55; O2SAT 97
[2024-07-24 23:06] VITALS: BP 164/81
--- NOTE | 2024-07-25 00:33 | PTCARENOTE ---
Pt bp was 164/81 hr 56 during 2300 vitals. No complaints at that time. Attempted to give hydralazine prn. Patient refused. Education given on importance of bp control. patient became increasingly agitated and refused.
[2024-07-25] MEDS: APRESOLINE 10 MG IV (03:25)
[2024-07-25 04:54] VITALS: BP 138/69
[2024-07-25 06:00] VITALS: BMI 21.6
[2024-07-25 07:55] VITALS: BP 124/50
[2024-07-25] MEDS: THERAGRAN 1 TABLET PO (08:49)
[2024-07-25] MEDS: VIBRAMYCIN 100 MG PO ×2 (08:49→20:34)
[2024-07-25] MEDS: MYRBETRIQ EXTENDED RELEASE 50 MG PO (08:49)
[2024-07-25] MEDS: COREG 3.125 MG PO ×2 (08:49→20:34)
[2024-07-25] MEDS: ELIQUIS 2.5 MG PO ×2 (08:49→20:34)
[2024-07-25] MEDS: COZAAR 25 MG PO (08:49)
[2024-07-25] MEDS: SINEMET 25-100 1 TABLET PO ×3 (08:49→21:11)
[2024-07-25] MEDS: HYDROPHOR 1 APPLIC TOPICAL (08:59)
[2024-07-25 12:13] VITALS: BP 117/63; PULSE 58
--- NOTE | 2024-07-25 12:35 | W.PN.HOSP.TC ---
Today's Communication/Plan
-
d/c planning snf rehab
Assessment / Plan
Assessment / Plan
1. Acute toxic metabolic encephalopathy - Resolved
Reported delirium/hallucination - Resolved
-Multifactorial likely from hyoscyamine/UTI possible Hypoglycemia episode
-CT head at admission did not show any acute issues
-Symptoms likely related to Levsin -strong antimuscarinic medication known to cause delirium/hallucination
-Other potential factors playing role of UTI/Hypoglycemia
-Further testing if clinically did not improve despite treating underlying causes of encephalopathy
2. Staphylococcal UTI
h/o recurrent UTI
-UA showing moderate pyuria/bacteriuria
-Urine cs growing Staphylococcus hominis -based on susceptibility changed to doxycycline. Stop vancomycin
-Day 4 of abx
3. Hypoglycemia -resolved
-Patient have decreased oral intake with mentation issues and have borderline low glucose number
-No further episodes of hypoglycemia, discontinue Accu-Cheks
-D5LR stopped at this point.
4. Parkinson's disease
-Patient require assistance, spouses care provider
-Was following Dr. Lara from neurology
-maintain on sinemet
-cleared VSE
-Continue IDDSI 6 diet, speech therapy evaluation ordered
5. Troponin elevation
-Nonischemic myocardial injury
6. Generalized weakness
Mechanical fall
-Patient having mechanical fall, discussed possible need of rehab as may not be safe at home
-Apparently patient family declined rehab placement from [facility]
7. Superficial lower extremity skin injury
-Wound care consulted
8. Paroxysmal A-fib Dx
-Diagnosed 1 week back
-Maintained on Coreg/Eliquis
Essential hypertension
Chronic right bundle branch block
Benign prostatic hyperplasia
History of cerebral palsy
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
History of prostate cancer status post prostatectomy
History of nephrolithiasis
Sleep disturbance
Full code
Eliquis
Anticipated Discharge: > 48 hours
Subjective/Interval History
-
Date of Service: July 25, 2024
no complains overnight
reported sleep disturbance
Objective Data
-
Vital Signs:
Vital Signs
Temp Pulse Resp BP Pulse Ox
97.4 F 56 18 124/50 96
07/25/24 07:55 07/25/24 07:55 07/25/24 07:55 07/25/24 08:49 07/25/24 11:49
I&O
07/24/24 07/25/24 07/26/24
06:59 06:59 06:59
Intake Total 580 / 580 840 / 840
Output Total 1780 / 1780 1335 / 1335
Balance -1200 / -1200 -495 / -495
Review of Systems
-
Respiratory: Reports No Symptoms
Cardiac: Reports No Symptoms
Abdomen/GI: Reports No Symptoms
Physical Exam
-
General: Comfortable and Cachectic
HEENT: Negative Oxygen
Respiratory: Clear to Auscultation
Cardiac: Regular Rhythm and S1/S2; Negative Murmur or Rub
GI: Soft, Nontender and Nondistended
Genito-urinary: Other (Condom cath - clear urine)
Musculoskeletal: No Edema
Neuro: Awake, Alert and No Motor Deficits
Psych: Calm
[2024-07-25 15:50] VITALS: BP 146/73
--- NOTE | 2024-07-25 16:01 | CM ---
Reviewed the chart notes. [facility] has declined the patient. Referrals made to area SNFs. CM continues to be available to patient/family and is monitoring medical plan for needs at discharge.
Plan: Discharge to SNF/rehab once bed secured and precert obtained. Patient continues on medsitter.
[2024-07-25] MEDS: MELATONIN 5 MG PO (21:11)
[2024-07-25 23:12] VITALS: BP 151/76
[2024-07-26 07:45] VITALS: BP 127/87
[2024-07-26] MEDS: SINEMET 25-100 1 TABLET PO ×3 (08:36→23:00)
[2024-07-26] MEDS: ELIQUIS 2.5 MG PO ×2 (08:36→19:56)
[2024-07-26] MEDS: VIBRAMYCIN 100 MG PO ×2 (08:36→19:56)
[2024-07-26] MEDS: COREG 3.125 MG PO ×2 (08:36→19:56)
[2024-07-26] MEDS: COZAAR 25 MG PO (08:36)
[2024-07-26] MEDS: THERAGRAN 1 TABLET PO (08:36)
[2024-07-26] MEDS: HYDROPHOR 1 APPLIC TOPICAL (11:04)
--- NOTE | 2024-07-26 13:21 | W.PN.HOSP.TC ---
Today's Communication/Plan
-
snf rehab placement
Assessment / Plan
Assessment / Plan
1. Acute toxic metabolic encephalopathy - Resolved
Reported delirium/hallucination - Resolved
-Multifactorial likely from hyoscyamine/UTI possible Hypoglycemia episode
-CT head at admission did not show any acute issues
-Symptoms likely related to Levsin -strong antimuscarinic medication known to cause delirium/hallucination
-Other potential factors playing role of UTI/Hypoglycemia
2. Staphylococcal UTI
h/o recurrent UTI
-UA showing moderate pyuria/bacteriuria
-Urine cs growing Staphylococcus hominis -based on susceptibility changed to doxycycline. Stop vancomycin
-Day 5 of abx today.
3. Hypoglycemia -resolved
-Patient have decreased oral intake with mentation issues and have borderline low glucose number
-No further episodes of hypoglycemia, discontinue Accu-Cheks
-D5LR stopped at this point.
4. Parkinson's disease
-Patient require assistance, spouses care provider
-Was following Dr. Lara from neurology
-maintain on sinemet
-cleared VSE
-Continue IDDSI 6 diet, speech therapy evaluation ordered
5. Troponin elevation
-Nonischemic myocardial injury
6. Generalized weakness
Mechanical fall
-Patient having mechanical fall, discussed possible need of rehab as may not be safe at home
-Apparently patient family declined rehab placement from [facility]
7. Superficial lower extremity skin injury
-Wound care consulted
8. Paroxysmal A-fib Dx
-Diagnosed 1 week back
-Maintained on Coreg/Eliquis
Essential hypertension
Chronic right bundle branch block
Benign prostatic hyperplasia
History of cerebral palsy
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
History of prostate cancer status post prostatectomy
History of nephrolithiasis
Sleep disturbance
Full code
Eliquis
Anticipated Discharge: Within 24 hours
Subjective/Interval History
-
Date of Service: July 26, 2024
no issues overnight
Objective Data
-
Vital Signs:
Vital Signs
Temp Pulse Resp BP Pulse Ox
97.5 F 56 18 127/87 94
07/26/24 07:45 07/26/24 07:45 07/26/24 07:45 07/26/24 07:45 07/26/24 07:45
I&O
07/25/24 07/26/24 07/27/24
06:59 06:59 06:59
Intake Total 840 / 840 960 / 960
Output Total 1335 / 1335 900 / 900
Balance -495 / -495 60 / 60
Review of Systems
-
Respiratory: Reports No Symptoms
Cardiac: Reports No Symptoms
Abdomen/GI: Reports No Symptoms
Physical Exam
-
General: Comfortable and Cachectic
HEENT: Negative Oxygen
Respiratory: Clear to Auscultation
Cardiac: Regular Rhythm and S1/S2; Negative Murmur or Rub
GI: Soft, Nontender and Nondistended
Genito-urinary: Other (Condom cath - clear urine)
Musculoskeletal: No Edema
Neuro: Awake, Alert and No Motor Deficits
Psych: Calm
[2024-07-26 15:50] VITALS: BP 162/80
[2024-07-26] MEDS: MELATONIN 5 MG PO (23:00)
[2024-07-26 23:37] VITALS: BP 161/95
[2024-07-27 05:23] VITALS: BMI 21.2
[2024-07-27 05:24] VITALS: BP 165/82
[2024-07-27] MEDS: APRESOLINE 10 MG IV (05:26)
[2024-07-27 06:38] LABS: Hematocrit 39.1 % (39.0-52.0); Mean Corp Hgb Conc. 33.2 g/dL (33.0-37.0); Mean Corpuscular Hgb 30.8 pg (27.0-31.0); Mean Corpuscular Volume 92.7 fL (80.0-94.0); Mean Platelet Volume 10.5 fL (7.4-10.4); Platelet Count 221 10^3/uL (130-400); Red Blood Cell Count 4.22 10^6/uL (4.70-6.10); Red Cell Dist. Width 12.4 % (11.5-14.5); White Blood Cell Count 9.6 10^3/uL (4.8-10.8)
[2024-07-27 07:04] LABS: Blood Urea Nitrogen 26 mg/dl (9-20); Calcium 8.5 mg/dl (8.4-10.2); Carbon Dioxide 25 mmol/L (22-30); Chloride 104 mmol/L (98-107); Estimated Creatinine Clearance 57 ml/min; Glucose 70 mg/dl (70-99); Potassium 4.4 mmol/L (3.5-5.1); Sodium 141 mmol/L (135-145); eGFR > 60.00
[2024-07-27 08:18] VITALS: BP 132/72
[2024-07-27] MEDS: MYRBETRIQ EXTENDED RELEASE 50 MG PO (08:19)
[2024-07-27] MEDS: SINEMET 25-100 1 TABLET PO ×3 (08:20→23:01)
[2024-07-27] MEDS: VIBRAMYCIN 100 MG PO ×2 (08:20→22:59)
[2024-07-27] MEDS: HYDROPHOR 1 APPLIC TOPICAL (08:20)
[2024-07-27] MEDS: COREG 3.125 MG PO ×2 (08:20→23:01)
[2024-07-27] MEDS: THERAGRAN 1 TABLET PO (08:20)
[2024-07-27] MEDS: COZAAR 25 MG PO (08:20)
[2024-07-27] MEDS: ELIQUIS 2.5 MG PO ×2 (08:20→22:59)
[2024-07-27 10:50] VITALS: BP 127/66; BP 155/77; PULSE 55; O2SAT 96
[2024-07-27 10:58] VITALS: BP 127/66; BP 155/77; PULSE 55; O2SAT 96
--- NOTE | 2024-07-27 12:55 | W.PN.HOSP.TC ---
Today's Communication/Plan
-
monitor vitals
see plan
cw abx
dc planning
needs SNF
Assessment / Plan
Assessment / Plan
Acute toxic metabolic encephalopathy - Resolved
Reported delirium/hallucination - Resolved
-Multifactorial likely from hyoscyamine/UTI possible Hypoglycemia episode
-CT head at admission did not show any acute issues
-Symptoms likely related to Levsin -strong antimuscarinic medication known to cause delirium/hallucination
-Other potential factors playing role of UTI/Hypoglycemia
Staphylococcal UTI
h/o recurrent UTI
-UA showing moderate pyuria/bacteriuria
-Urine cs growing Staphylococcus hominis -based on susceptibility changed to doxycycline. Stop vancomycin
Hypoglycemia -resolved
-Patient have decreased oral intake with mentation issues and have borderline low glucose number
-No further episodes of hypoglycemia, discontinue Accu-Cheks
-D5LR stopped at this point.
Parkinson's disease
-Patient require assistance, spouses care provider
-Was following Dr. Lara from neurology
-maintain on sinemet
-cleared VSE
-Continue IDDSI 6 diet, speech therapy evaluation ordered
Troponin elevation
-Nonischemic myocardial injury
Generalized weakness
Mechanical fall
-Patient having mechanical fall, discussed possible need of rehab as may not be safe at home
-Apparently patient family declined rehab placement from [facility]
Superficial lower extremity skin injury
-Wound care consulted
Paroxysmal A-fib Dx
-Diagnosed 1 week back
-Maintained on Coreg/Eliquis
Essential hypertension
Chronic right bundle branch block
Benign prostatic hyperplasia
History of cerebral palsy
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
History of prostate cancer status post prostatectomy
History of nephrolithiasis
Sleep disturbance
Full code
Eliquis
General: Comfortable and Cachectic
HEENT: Negative Oxygen
Respiratory: Clear to Auscultation
Cardiac: Regular Rhythm and S1/S2; Negative Murmur or Rub
GI: Soft, Nontender and Nondistended
Musculoskeletal: No Edema
Neuro: Awake, Alert and No Motor Deficits
Psych: Calm
Anticipated Discharge: Within 24 hours
Subjective/Interval History
-
Date of Service: July 27, 2024
Denies pain
Objective Data
-
Labs:
Laboratory Results
07/27/24
05:14
WBC 9.6
Hgb 13.0
Hct 39.1
Plt Count 221
Sodium 141
Potassium 4.4
Chloride 104
Carbon Dioxide 25
BUN 26 H
Creatinine 0.8
Glucose 70
Calcium 8.5
Vital Signs:
Vital Signs
Temp Pulse Resp BP Pulse Ox
97.5 F 56 18 132/72 96
07/27/24 08:18 07/27/24 08:18 07/27/24 08:18 07/27/24 08:20 07/27/24 08:18
I&O
07/26/24 07/27/24 07/28/24
06:59 06:59 06:59
Intake Total 960 / 960 930 / 930
Output Total 900 / 900 1700 / 1700
Balance 60 / 60 -770 / -770
[2024-07-27] MEDS: VISBIOME 1 CAP PO (13:10)
--- NOTE | 2024-07-27 14:24 | CM ---
Spoke with patient
Prefer [facility] vs. [facility]
Nena from [facility] looking if bed may be available and get back to CM
CM will need to obtain ins auth
PLAN: SNF, pending bed availability
[2024-07-27 15:22] VITALS: BP 101/57
[2024-07-27 23:00] VITALS: BP 135/93
[2024-07-27] MEDS: MELATONIN 5 MG PO (23:01)
[2024-07-28 06:00] VITALS: BMI 21.4
[2024-07-28 07:55] VITALS: BP 144/72
[2024-07-28] MEDS: COZAAR 25 MG PO (08:13)
[2024-07-28] MEDS: VIBRAMYCIN 100 MG PO ×2 (08:13→19:45)
[2024-07-28] MEDS: SINEMET 25-100 1 TABLET PO ×3 (08:13→21:17)
[2024-07-28] MEDS: ELIQUIS 2.5 MG PO ×2 (08:14→19:45)
[2024-07-28] MEDS: COREG 3.125 MG PO ×2 (08:14→19:45)
[2024-07-28] MEDS: THERAGRAN 1 TABLET PO (08:14)
[2024-07-28] MEDS: HYDROPHOR 1 APPLIC TOPICAL (08:15)
[2024-07-28 08:27] LABS: Blood Urea Nitrogen 30 mg/dl (9-20); Calcium 8.6 mg/dl (8.4-10.2); Carbon Dioxide 26 mmol/L (22-30); Chloride 105 mmol/L (98-107); Estimated Creatinine Clearance 51 ml/min; Glucose 80 mg/dl (70-99); Potassium 4.5 mmol/L (3.5-5.1); Sodium 140 mmol/L (135-145); eGFR > 60.00
[2024-07-28 08:52] LABS: % Basophils 0.5 % (0-2); % Eosinophils 3.2 % (0-6); % Immature Granulocytes 0.5 % (0-0.5); % Lymphocytes 19.7 % (20.5-51.1); % Monocytes 9.3 % (1.7-9.3); % Neutrophils 66.8 % (42.2-75.2); Absolute Eosinophils 0.3 10^3/uL (0-0.7); Absolute Lymphocytes 1.7 10^3/uL (1.2-3.4); Absolute Monocytes 0.8 10^3/uL (0.1-0.6); Absolute Neutrophils 5.7 10^3/uL (1.4-6.5); Hematocrit 40.4 % (39.0-52.0); Hemoglobin 13.1 g/dL (13.0-18.0); Mean Corp Hgb Conc. 32.4 g/dL (33.0-37.0); Mean Corpuscular Hgb 30.3 pg (27.0-31.0); Mean Corpuscular Volume 93.5 fL (80.0-94.0); Mean Platelet Volume 10.2 fL (7.4-10.4); Nucleated Red Blood Cells % 0 % (-); Platelet Count 236 10^3/uL (130-400); Red Blood Cell Count 4.32 10^6/uL (4.70-6.10); Red Cell Dist. Width 12.5 % (11.5-14.5); White Blood Cell Count 8.6 10^3/uL (4.8-10.8)
--- NOTE | 2024-07-28 09:33 | CM ---
Reviewed the chart notes and spoke with the patient's spouse via telephone. Medsitter discontinued. Discuss with the spouse that [facility] declined the patient. [facility] and [facility] have no beds available. Permission received to send referrals within a 10
mile radius of [place]. Referrals with updated clinicals sent today. Will update the patient's spouse once CM receives answers from [facility]. CM continues to be available to patient/family and is monitoring medical plan for needs at discharge.
Plan: Discharge to SNF/rehab once bed secured and precert obtained.
[2024-07-28] MEDS: VISBIOME 1 CAP PO (12:41)
--- NOTE | 2024-07-28 13:42 | W.PN.HOSP.TC ---
Today's Communication/Plan
-
Monitor vital signs see plan
Discharge planning
Calm this morning
cw abx
Assessment / Plan
Assessment / Plan
Acute toxic metabolic encephalopathy - Resolved
Reported delirium/hallucination - Resolved
-Multifactorial likely from hyoscyamine/UTI possible Hypoglycemia episode
-CT head at admission did not show any acute issues
-Symptoms likely related to Levsin -strong antimuscarinic medication known to cause delirium/hallucination
-Other potential factors playing role of UTI/Hypoglycemia
Staphylococcal UTI
h/o recurrent UTI
-UA showing moderate pyuria/bacteriuria
-Urine cs growing Staphylococcus hominis -based on susceptibility changed to doxycycline. Stop vancomycin
Hypoglycemia -resolved
-Patient have decreased oral intake with mentation issues and have borderline low glucose number
-No further episodes of hypoglycemia, discontinue Accu-Cheks
-D5LR stopped at this point.
Parkinson's disease
-Patient require assistance, spouses care provider
-Was following Dr. Lara from neurology
-maintain on sinemet
-cleared VSE
-Continue IDDSI 6 diet, speech therapy evaluation ordered
Troponin elevation
-Nonischemic myocardial injury
Generalized weakness
Mechanical fall
-Patient having mechanical fall, discussed possible need of rehab as may not be safe at home
-Apparently patient family declined rehab placement from [facility]
Superficial lower extremity skin injury
-Wound care consulted
Paroxysmal A-fib Dx
-Diagnosed 1 week back
-Maintained on Coreg/Eliquis
Essential hypertension
Chronic right bundle branch block
Benign prostatic hyperplasia
History of cerebral palsy
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
History of prostate cancer status post prostatectomy
History of nephrolithiasis
Sleep disturbance
Full code
Eliquis
General: Comfortable and Cachectic
HEENT: Negative Oxygen
Respiratory: Clear to Auscultation
Cardiac: Regular Rhythm and S1/S2; Negative Murmur or Rub
GI: Soft, Nontender and Nondistended
Musculoskeletal: No Edema
Neuro: Awake, Alert and No Motor Deficits
Psych: Calm
Anticipated Discharge: Within 24 hours
Subjective/Interval History
-
Date of Service: July 28, 2024
denies pain
Objective Data
-
Labs:
Laboratory Results
07/28/24
06:32
WBC 8.6
Hgb 13.1
Hct 40.4
Plt Count 236
Sodium 140
Potassium 4.5
Chloride 105
Carbon Dioxide 26
BUN 30 H
Creatinine 0.9
Glucose 80
Calcium 8.6
Vital Signs:
Vital Signs
Temp Pulse Resp BP Pulse Ox
97.2 F 57 17 144/72 97
07/28/24 07:55 07/28/24 08:13 07/28/24 07:55 07/28/24 08:13 07/28/24 10:00
I&O
07/27/24 07/28/24 07/29/24
06:59 06:59 06:59
Intake Total 930 / 930 900 / 900
Output Total 1700 / 1700 1250 / 1250
Balance -770 / -770 -350 / -350
[2024-07-28 15:35] VITALS: BP 125/61
[2024-07-28] MEDS: MELATONIN 5 MG PO (21:17)
[2024-07-28 23:00] VITALS: BP 122/67
[2024-07-29 06:00] VITALS: BMI 21.4
[2024-07-29 07:19] LABS: % Basophils 0.6 % (0-2); % Eosinophils 3.3 % (0-6); % Immature Granulocytes 0.6 % (0-0.5); % Lymphocytes 24.4 % (20.5-51.1); % Monocytes 11.4 % (1.7-9.3); % Neutrophils 59.7 % (42.2-75.2); Absolute Basophils 0.1 10^3/uL (0-0.2); Absolute Eosinophils 0.3 10^3/uL (0-0.7); Absolute Immature Granulocytes 0.1 10^3/uL (0-0.05); Absolute Lymphocytes 2.2 10^3/uL (1.2-3.4); Absolute Neutrophils 5.3 10^3/uL (1.4-6.5); Hematocrit 39.3 % (39.0-52.0); Hemoglobin 12.7 g/dL (13.0-18.0); Mean Corp Hgb Conc. 32.3 g/dL (33.0-37.0); Mean Corpuscular Hgb 30.5 pg (27.0-31.0); Mean Corpuscular Volume 94.2 fL (80.0-94.0); Mean Platelet Volume 9.9 fL (7.4-10.4); Nucleated Red Blood Cells % 0 % (-); Platelet Count 238 10^3/uL (130-400); Red Blood Cell Count 4.17 10^6/uL (4.70-6.10); Red Cell Dist. Width 12.3 % (11.5-14.5); White Blood Cell Count 8.8 10^3/uL (4.8-10.8)
[2024-07-29 07:37] LABS: Blood Urea Nitrogen 31 mg/dl (9-20); Calcium 8.9 mg/dl (8.4-10.2); Carbon Dioxide 26 mmol/L (22-30); Chloride 104 mmol/L (98-107); Estimated Creatinine Clearance 51 ml/min; Glucose 73 mg/dl (70-99); Potassium 4.7 mmol/L (3.5-5.1); Sodium 142 mmol/L (135-145); eGFR > 60.00
[2024-07-29] MEDS: ELIQUIS 2.5 MG PO (07:50)
[2024-07-29] MEDS: COREG 3.125 MG PO (07:50)
[2024-07-29] MEDS: SINEMET 25-100 1 TABLET PO ×2 (07:52→15:00)
[2024-07-29] MEDS: THERAGRAN 1 TABLET PO (07:52)
[2024-07-29] MEDS: VIBRAMYCIN 100 MG PO (07:52)
[2024-07-29] MEDS: COZAAR 25 MG PO (07:52)
[2024-07-29] MEDS: HYDROPHOR 1 APPLIC TOPICAL (07:53)
[2024-07-29] MEDS: MYRBETRIQ EXTENDED RELEASE 50 MG PO (07:53)
[2024-07-29 08:09] VITALS: BP 138/78
--- NOTE | 2024-07-29 09:58 | CM ---
Addendum entered by Lynn Gleason RN 07/29/24 15:32:
Patient's spouse informed of transfer tonight to [facility].
Addendum entered by Lynn Gleason RN 07/29/24 14:45:
Auth approved 6 days; 07/29-08/03; NRD 08/03; Auth # [id number]; Call [phone]
Plan: Discharge to [facility] today
Call report to: [phone]
Fax report to: [phone]
Medical necessity and transport forms on chart.
Original Note:
Reviewed the chart notes and spoke with the patient's spouse via telephone. IMM reviewed and placed on the chart. [facility] has accepted the patient. Patient's spouse informed and is agreeable to placement. Auth will be needed. Awaiting
PT evaluation for today to pursue auth. CM continues to be available to patient/family and is monitoring medical plan for needs at discharge.
[facility] NPI# [id number]
Dr. Da Silva NPI# [id number]
Plan: Discharge to [facility] when medically stable and auth obtained.
[2024-07-29] MEDS: VISBIOME 1 CAP PO (11:21)
--- NOTE | 2024-07-29 11:30 | W.PN.HOSP.TC ---
Addendum entered and electronically signed by Tyson Valera MD 07/29/24 14:55:
Time of discharge 37 minutes
Continue antibiotics through tomorrow
Original Note:
Today's Communication/Plan
-
monitor vitals
see plan
cw abx
dc planning; CM aware. pending placement
Assessment / Plan
Assessment / Plan
Acute toxic metabolic encephalopathy - Resolved
Reported delirium/hallucination - Resolved
-Multifactorial likely from hyoscyamine/UTI possible Hypoglycemia episode
-CT head at admission did not show any acute issues
-Symptoms likely related to Levsin -strong antimuscarinic medication known to cause delirium/hallucination
-Other potential factors playing role of UTI/Hypoglycemia
Staphylococcal UTI
h/o recurrent UTI
-UA showing moderate pyuria/bacteriuria
-Urine cs growing Staphylococcus hominis -based on susceptibility changed to doxycycline. Stop vancomycin
Hypoglycemia -resolved
-Patient have decreased oral intake with mentation issues and have borderline low glucose number
-No further episodes of hypoglycemia, discontinue Accu-Cheks
-D5LR stopped at this point.
Parkinson's disease
-Patient require assistance, spouses care provider
-Was following Dr. Lara from neurology
-maintain on sinemet
-cleared VSE
-Continue IDDSI 6 diet, speech therapy evaluation ordered
Troponin elevation
-Nonischemic myocardial injury
Generalized weakness
Mechanical fall
-Patient having mechanical fall, discussed possible need of rehab as may not be safe at home
-Apparently patient family declined rehab placement from [facility]
Superficial lower extremity skin injury
-Wound care consulted
Paroxysmal A-fib Dx
-Diagnosed 1 week back
-Maintained on Coreg/Eliquis
Essential hypertension
Chronic right bundle branch block
Benign prostatic hyperplasia
History of cerebral palsy
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
History of prostate cancer status post prostatectomy
History of nephrolithiasis
Sleep disturbance
Full code
Eliquis
General: Comfortable and Cachectic
HEENT: Negative Oxygen
Respiratory: Clear to Auscultation
Cardiac: Regular Rhythm and S1/S2; Negative Murmur or Rub
GI: Soft, Nontender and Nondistended
Musculoskeletal: No Edema
Neuro: Awake, Alert and No Motor Deficits
Psych: Calm
Anticipated Discharge: Today
Subjective/Interval History
-
Date of Service: July 29, 2024
denies pain
Objective Data
-
Labs:
Laboratory Results
07/29/24
06:42
WBC 8.8
Hgb 12.7 L
Hct 39.3
Plt Count 238
Sodium 142
Potassium 4.7
Chloride 104
Carbon Dioxide 26
BUN 31 H
Creatinine 0.9
Glucose 73
Calcium 8.9
Vital Signs:
Vital Signs
Temp Pulse Resp BP Pulse Ox
97.3 F 56 17 138/78 97
07/29/24 08:09 07/29/24 08:09 07/29/24 08:09 07/29/24 08:09 07/29/24 08:09
I&O
07/28/24 07/29/24 07/30/24
06:59 06:59 06:59
Intake Total 900 / 900 880 / 880
Output Total 1250 / 1250 1350 / 1350
Balance -350 / -350 -470 / -470
[2024-07-29 12:32] VITALS: BP 134/71; PULSE 56; O2SAT 97
[2024-07-29] MEDS: SENOKOT-S 1 TABLET PO (14:04)
--- NOTE | 2024-07-29 14:55 | W.DCSUMMARY ---
Discharge Summary
Discharge Data
Date of Admission: 07/20/24
Date of Discharge: 07/29/24
-
Pending Results: No
Hospital Course
88-year-old male with past medical history of Parkinson's disease, paroxysmal atrial fibrillation, essential hypertension, BPH, cerebral palsy, permanent pacemaker, prostate cancer status post prostatectomy, nephrolithiasis, sleep disturbance came
to the hospital with acute toxic metabolic encephalopathy along with delirium which was likely thought was multifactorial secondary to hypoglycemia, UTI and use of hyoscyamine. Hyoscyamine was stopped and patient's symptoms continue to improve.
His hypoglycemia also continue to improve over time. For his UTI he was initially started on IV antibiotic which were later transitioned to oral doxycycline. He was also evaluated by physical therapy recommended SNF. Once his symptoms continue to
improve and he had SNF placement, he was then discharged to rehab with instructions to follow-up with all the physicians outpatient.
Discharge Plan
-
Patient Disposition: Group Home/SNF
Discharge Diagnosis/Procedures: Acute toxic metabolic encephalopathy
Acute delirium
Urinary tract infection
Hypoglycemia
Parkinson's disease
Nonischemic myocardial injury troponin elevation
Ambulatory dysfunction with mechanical fall
Diet: Other diet
Additional Diets: Soft and bite-size with thin liquid
Activity: With assistance
Driving Restrictions: Not until seen by your Dr
Activity Restrictions/Additional Instructions:
Wound Care Instructions
Moisturized legs and feet with mineral oil daily
L leg: clean with soap and water, Vaseline gauze and dry dressing change daily and prn drainage.
Referrals:
Patrick Puentes MD [Family Provider] - in less than 1 week
Prescriptions:
New
white petrolatum [Hydrophor] 42 % Ointment
1 applic topical DAILY Qty: 0 0RF
melatonin 5 mg Tablet
5 mg PO HS Qty: 0 0RF
sennosides-docusate sodium 8.6-50 mg Tablet
1 tab PO BIDPRN PRN (Reason: constipation) Qty: 0 0RF
doxycycline hyclate 100 mg Capsule
100 mg PO Q12 2 Days Qty: 4 0RF
Lactobac/Bifidobac [Visbiome]
1 cap PO DAILY@1200 Qty: 0 0RF
Continued
Refresh Classic (PF) 1.4-0.6 % Dropperette
1 drp BOTH EYES QIDPRN PRN (Reason: dry eyes)
mirabegron [Myrbetriq] 50 mg tablet extended release 24 hr
50 mg PO Q48H
carvedilol 3.125 mg tablet
3.125 mg PO BID
carbidopa-levodopa 25-100 mg tablet
1 tab PO TID
multivitamin with folic acid [Tab-A-Keyana] 400 mcg tablet
1 tab PO DAILY
Eliquis 2.5 mg tablet
2.5 mg PO BID
Discontinued
hyoscyamine sulfate 0.125 mg tablet,disintegrating
0.125 mg PO BID
Discharge Orders:
Discharge Patient (As Directed); Ordered 07/29/24
Ordered By: Tyson Valera
Discharge Date and Time
Discharge Date/Time: 07/29/24 18:31
Print Language: SENEGALESE
[2024-07-29 15:23] VITALS: BP 109/58
--- NOTE | 2024-07-29 16:30 | PTCARENOTE ---
Report called to Nikky Snyder at [phone], tranferred to nursing station but no answer. Instructed via voicemail to call back with our extension for report. Transport set to pick patient up at 1800.
== END 2024-07-29 18:31 | DRG 689 ==
LOC: 2 NORTH 23:02
PROVIDERS: Clinical Nurse Specialist Family Health; Hospitalist; Student in an Organized Health Care Education/Training Program; ADMITTING PHYSICIAN Internal Medicine; ATTENDING PHYSICIAN Internal Medicine; EMERGENCY PHYSICIAN Emergency Medicine; FAMILY PHYSICIAN Family Medicine
DX: N39.0 Urinary tract infection, site not specified (principal); G92.8 Other toxic encephalopathy; I5A Non-ischemic myocardial injury (non-traumatic); R64 Cachexia; G20.A1 Parkinson's disease without dyskinesia, without mention of fluctuations; I48.0 Paroxysmal atrial fibrillation; G80.8 Other cerebral palsy; I10 Essential (primary) hypertension; Z79.01 Long term (current) use of anticoagulants; Z75.1 Person awaiting admission to adequate facility elsewhere; Z68.21 Body mass index [BMI] 21.0-21.9, adult
CPT/HCPCS: 70450; 71046; 72125; 74230; 80048; 80053; 81003; 81015; 82607; 82962; 83880; 84484; 85025; 85027; 85610; 85730; 87086; 87147; 87186; 92526; 92610; 92611; 93005; 96374; 97110; 97116; 97163; 97167; 97530; 97535; 99285

== ENCOUNTER 2024-09-08 10:25 | Day surgery (SDC) | payer OTHER, SELFPAY ==
[2024-09-04 11:50] VITALS: BMI 24.5
[2024-09-04 12:29] LABS: % Basophils 0.2 % (0-2); % Immature Granulocytes 0.2 % (0-0.5); % Lymphocytes 16.5 % (20.5-51.1); % Neutrophils 71.1 % (42.2-75.2); Absolute Eosinophils 0.2 10^3/uL (0-0.7); Absolute Lymphocytes 1.4 10^3/uL (1.2-3.4); Absolute Monocytes 0.8 10^3/uL (0.1-0.6); Hematocrit 39.1 % (39.0-52.0); Hemoglobin 13.1 g/dL (13.0-18.0); Mean Corp Hgb Conc. 33.5 g/dL (33.0-37.0); Mean Corpuscular Hgb 30.3 pg (27.0-31.0); Mean Corpuscular Volume 90.5 fL (80.0-94.0); Mean Platelet Volume 10.2 fL (7.4-10.4); Nucleated Red Blood Cells % 0 % (-); Platelet Count 171 10^3/uL (130-400); Red Blood Cell Count 4.32 10^6/uL (4.70-6.10); Red Cell Dist. Width 12.7 % (11.5-14.5); White Blood Cell Count 8.4 10^3/uL (4.8-10.8)
[2024-09-04 12:41] LABS: INR 1.13; PT 14.8 Sec (11.4-14.6)
[2024-09-04 13:03] LABS: ALT (SGPT) 12 U/L (0-50); AST (SGOT) 23 U/L (17-59); Albumin 3.8 g/dl (3.5-5.0); Alkaline Phosphatase 74 U/L (38-126); Blood Urea Nitrogen 23 mg/dl (9-20); Calcium 8.5 mg/dl (8.4-10.2); Carbon Dioxide 27 mmol/L (22-30); Chloride 104 mmol/L (98-107); Estimated Creatinine Clearance 51 ml/min; Glucose 79 mg/dl (70-99); Magnesium 1.8 mg/dl (1.6-2.3); Potassium 3.8 mmol/L (3.5-5.1); Sodium 140 mmol/L (135-145); Total Bilirubin 1.1 mg/dl (0.2-1.3); Total Protein 6.2 g/dl (6.3-8.2); eGFR > 60.00
[2024-09-08 10:41] VITALS: BP 178/97; BMI 23.7
[2024-09-08] MEDS: VANCOCIN 200 IV (11:02)
[2024-09-08 11:16] VITALS: BP 172/91
--- NOTE | 2024-09-08 12:36 | ITS.CL.PACE ---
Car Escort - Pacemaker Implant
Pacemaker Implant
Procedure Report:
PACEMAKER GENERATOR CHANGE
Date of Procedure: September 08, 2024
Primary Care Provider: Dr. Patrick Puentes
Primary gold buyer: Dr. Fermin Pino
PROCEDURES:
1. Removal of dual chamber PPM generator at MAY
2. Implant of new dual chamber PPM generator
INDICATION FOR PROCEDURE:
1. PPM generator at MAY
2. Non-reversible symptomatic bradycardia due to third degree atrioventricular block
The patient was prepped and draped in sterile fashion. Lidocaine with epi was used for local anesthesia. An incision was made along the previous incision and the device and leads were carefully dissected from the pocket. Hemostasis was obtained
with electrocautery. The leads were from the device header and tested using an external analyzer. The pocket was liberally irrigated with antibiotic solution. Once testing (see below) showed adequate and stable function, the leads were
connected to the generator header and the leads and generator were placed within the pocket. The pocket was closed in the typical fashion.
EXPLANTED PPM GENERATOR:
Medtronic [id number], SN: [id number] H Left Pectoral
IMPLANTED PPM GENERATOR:
Medtronic [id number], SN [id number]
RETAINED LEADS:
RA: Medtronic 5086-52, SN: [id number], RAA
RV: Medtronic 5086-58, SN: [id number], RV apical septum
DEVICE TESTING:
Sensing: RA AF, RV no escape
Capture: RA AF, RV 1 V @ 0.4ms
Ohms: RA 530, RV 399
FINAL PROGRAMMING
Jacob Pacing: VVIR 55-130 ppm
COMPLICATIONS:
None
CONCLUSIONS:
1. Successful explant of dual chamber permanent pacemaker
2. Successful implant of dual chamber permanent pacemaker
RECOMMENDATIONS:
1. In-Office wound check in 7-10 days.
Copy to:
Dr. Patrick Puentes
Dr. Fermin Pino
[2024-09-08 12:42] VITALS: BP 138/76
[2024-09-08 12:45] VITALS: BP 131/92
[2024-09-08 13:00] VITALS: BP 149/92
[2024-09-08 13:16] VITALS: BP 155/83
== END 2024-09-08 13:30 | disposition home or self-care (01) ==
LOC: CATH 10:25
PROVIDERS: ATTENDING PHYSICIAN Internal Medicine Cardiovascular Disease; FAMILY PHYSICIAN Family Medicine; OTHER PHYSICIAN Internal Medicine Cardiovascular Disease
DX: Z45.010 Encounter for checking and testing of cardiac pacemaker pulse generator [battery] (principal); I44.2 Atrioventricular block, complete; R00.1 Bradycardia, unspecified; I48.0 Paroxysmal atrial fibrillation; I47.20 Ventricular tachycardia, unspecified; I49.3 Ventricular premature depolarization; I45.10 Unspecified right bundle-branch block; I08.0 Rheumatic disorders of both mitral and aortic valves; R09.82 Postnasal drip; G80.9 Cerebral palsy, unspecified; Z90.79 Acquired absence of other genital organ(s); N40.0 Benign prostatic hyperplasia without lower urinary tract symptoms; N32.81 Overactive bladder; G47.00 Insomnia, unspecified; Z87.440 Personal history of urinary (tract) infections; H04.123 Dry eye syndrome of bilateral lacrimal glands; G20.A1 Parkinson's disease without dyskinesia, without mention of fluctuations; R26.2 Difficulty in walking, not elsewhere classified; Z79.899 Other long term (current) drug therapy; Z79.01 Long term (current) use of anticoagulants
CPT/HCPCS: 33228; 36415; 80053; 83735; 85025; 85610; 93005; C1785

== ENCOUNTER → 2024-09-16 17:14 | Outpatient (REF) | payer OTHER, SELFPAY ==
[2024-09-16 17:42] LABS: Urine Albumin Trace (Neg - Trace); Urine Bilirubin Negative (Negative); Urine Character Clear (Clear); Urine Color Yellow; Urine Glucose Negative (Negative); Urine Ketone Trace (Negative); Urine Leukocyte Trace (Negative); Urine Nitrite Negative (Negative); Urine Occult Blood Negative (Negative); Urine Specific Gravity 1.025 (<1.030); Urine Urobilinogen 1+ (Neg - 1+)
[2024-09-16 17:50] LABS: Urine Red Blood Cell 0-2 /HPF (0-2)
[2024-09-16 17:51] LABS: Urine Bacteria Moderate (Negative)
[2024-09-16 17:52] LABS: Urine Calcium Oxalate Crystals Present
== END ==
LOC: REG 17:14
PROVIDERS: ATTENDING PHYSICIAN Family Medicine
DX: R41.0 Disorientation, unspecified (principal); N39.0 Urinary tract infection, site not specified
CPT/HCPCS: 81003; 81015; 87086

== ENCOUNTER 2024-09-18 19:00 | Inpatient (IN) | payer OTHER, SELFPAY ==
[2024-09-18 13:21] VITALS: BP 175/97
[2024-09-18 13:45] LABS: % Basophils 0.5 % (0-2); % Eosinophils 2.2 % (0-6); % Immature Granulocytes 0.2 % (0-0.5); % Lymphocytes 17.6 % (20.5-51.1); % Monocytes 8.3 % (1.7-9.3); % Neutrophils 71.2 % (42.2-75.2); Absolute Eosinophils 0.2 10^3/uL (0-0.7); Absolute Lymphocytes 1.5 10^3/uL (1.2-3.4); Absolute Monocytes 0.7 10^3/uL (0.1-0.6); Hematocrit 41.9 % (39.0-52.0); Hemoglobin 13.6 g/dL (13.0-18.0); Mean Corp Hgb Conc. 32.5 g/dL (33.0-37.0); Mean Corpuscular Hgb 29.9 pg (27.0-31.0); Mean Corpuscular Volume 92.1 fL (80.0-94.0); Mean Platelet Volume 9.9 fL (7.4-10.4); Nucleated Red Blood Cells % 0 % (-); Platelet Count 225 10^3/uL (130-400); Red Blood Cell Count 4.55 10^6/uL (4.70-6.10); Red Cell Dist. Width 13.9 % (11.5-14.5); White Blood Cell Count 8.5 10^3/uL (4.8-10.8)
[2024-09-18 14:20] LABS: ALT (SGPT) 12 U/L (0-50); AST (SGOT) 24 U/L (17-59); Albumin 4.1 g/dl (3.5-5.0); Alkaline Phosphatase 82 U/L (38-126); Blood Urea Nitrogen 20 mg/dl (9-20); Calcium 8.9 mg/dl (8.4-10.2); Carbon Dioxide 28 mmol/L (22-30); Chloride 103 mmol/L (98-107); Glucose 81 mg/dl (70-99); Sodium 141 mmol/L (135-145); Total Protein 6.9 g/dl (6.3-8.2); eGFR > 60.00
[2024-09-18 15:25] VITALS: BP 169/84
--- NOTE | 2024-09-18 17:05 | ED.GENMED ---
History of Present Illness
General
Chief Complaint: Cough
Source: patient and family
Exam Limitations: none
Time Seen by Provider: 09/18/24 16:45
Nursing documentation reviewed up to this point in time: agreed with
History of Present Illness
History of Present Illness:
88-year-old male presents emergency room complaining of cough 3 to 4 weeks, concern for pneumonia. He arrives via EMS. He was diagnosed with a urinary tract infection yesterday and started on a biotic, but he does not know the name.
Past History
Past History
ED Past Medical History: Other (cerebral palsy Parkinson's)
ED Past Surgical History: Cardiac (Pacemaker) and Other (pacemaker)
Patient has exhibited threatening behavior?: No
Social History
Tobacco: Non-smoker
Alcohol: None
Drug: None
Personal:
Living: with family
Employment: Not employed
Review of Systems
Review of Systems
Allergies reviewed?: Yes
All Other Systems: Not applicable
Constitutional: Reports no symptoms
EENT: Reports no symptoms
Respiratory: Reports cough and trouble breathing
Cardiac: Reports no symptoms
ABD/GI: Reports no symptoms
: Reports dark urine
Musculoskeletal: Reports no symptoms
Skin: Reports no symptoms
Neurological: Reports no symptoms
Endocrine: Reports no symptoms
Hematologic/Lymphatic: Reports no symptoms
Psychiatric: Reports no symptoms
Phy Exam
Physical Exam
Physical Exam:
Physical Exam
General: Mild respiratory distress, not acutely ill
Neck: supple. no meningeal signs. normal posterior pharynx
Heart: s1/s2 regular rate and rhythm, no murmur. equal radial
pulses.
HEENT: Pupils equal round reactive to light, EOMI
Lungs: Mild respiratory distress. Rales bilaterally
Abdomen: normal bowel sounds. not tender. no CVAT
Neuro: alert and oriented. no focal neurological deficits cranial nerves II through XII intact
Skin: no rash
Psychiatric: well kept. interactive and cooperative
Extremities: no edema. no calf tenderness. negative homans. good distal pulses
Scores
Heart Failure Risk
Heart Failure Risk Score: Yes
History of Stroke or TIA: No
History of intubation for respiratory distress: No
Heart rate on ED arrival >/= 110: No
SaO2 <90% on arrival on room air: No
HR >/=110 during 3min walk test (or too ill to perform test): Yes
ECG has acute ischemic changes: No
Urea >/=12mmol/L (BUN 33.6mg/dL): No
Serum CO2>/=35mmol/L: No
Troponin I or T elevated to MS Level (0.4mg/dL): No
NT-proBNP >/=5,000ng/L (5,000pg/ml): Yes
HF Risk Score: 3
Admission Status: HIGH RISK 15.9% Consider SNF treatment or admission to hospital
Course
Orders/Labs/Results
Orders:
Orders
09/18/24 13:20
CR Chest - 2 Views Urgent
Comment:
Reason For Exam: sob
09/18/24 13:30
Complete Blood Count/With Diff Urgent
Comprehensive Metabolic Panel Urgent
09/18/24 Dinner
Cholesterol Lowering
Cholesterol Lowering: Sodium, 2 Gram
09/18/24 16:47
Electrocardiogram (*1) Urgent
Reason for Study: Shortness of Breath
EKG- Treatment ONCE
09/18/24 17:04
NT-proBNP Urgent
Troponin I Urgent
09/18/24 17:06
Urinalysis Reflex To Culture Urgent
Date Specimen was Collected: 09/18/24
Time Specimen was Collected: 17:05
09/18/24 18:14
Furosemide [Lasix] 40 mg IV NOW STA
Nitroglycerin Ointment [Nitro-Bid] 1 inch TOPICAL NOW STA
09/18/24 18:55
Admit/Transfer Patient As Directed
Co-Sign Provider:
Level of Care: Inpatient admission
Assign to:: Telemetry
Physician / Group: maria de jesus
Diagnosis: chf exacerbation
Reason for Telemetry: Pulmonary Edema
Date to Stop Telemetry: 09/21/24
Time to Stop Telemetry: 11:00
Reason for Hospitalization: chf exacerbation
Expected length of stay greater than two midnights?: Yes
ELOS- Estimated Length of Stay in days: 2
I certify the patient meets the requirements for IP care: Yes
PRN Pain Medication Management As Directed
May give lesser potent ordered pain med per pt: Yes
preference::
Protocol:: Medication orders for pain may be administered in a
manner that supports deferring to patient preference
when the pt is:
- Requesting an ordered lesser potent pain medication.
Least to most potent pain medications are defined
as: acetaminophen < NSAID < tramadol < opioids
(morphine, oxycodone, hydromorphone).
- Requesting a lesser dose of the same medication IF
ORDERED.
- Requesting a less intrusive route of administration
if both routes are prescribed by the provider (PO <
IV).
09/18/24 18:56
Code Status As Directed
Resuscitation Status: Full Code
09/18/24 20:58
VTE Contraindication Routine
VTE Mechanical Device Contraindication: Medical Contraindication
Pharmocologic Contraindication: Medical Contraindication
Activity As Directed
Activity Level: As Tolerated
I/O [Intake/ Output] As Directed
Frequency: q12h
Vital Signs As Directed
Frequency: Per unit guidelines
Weight As Directed
Frequency: Daily
09/19/24 06:00
Complete Blood Count/With Diff IN AM
Comprehensive Metabolic Panel IN AM
09/19/24 08:00
Furosemide [Lasix] 40 mg IV DAILY
09/21/24 11:00
DC Protocol for Telemetry ONCE
Abnormal Lab Results
09/18/24 09/18/24
13:30 17:04
RBC 4.55 L 10^6/uL
(4.70-6.10)
MCHC 32.5 L g/dL
(33.0-37.0)
Absolute Monos (auto) 0.7 H 10^3/uL
(0.1-0.6)
Lymphocytes % 17.6 L %
(20.5-51.1)
Troponin I 0.044 H* ng/ml
09/18/24 13:30
09/18/24 13:30
Vital Signs
Initial and Last Documented VS:
Initial Vital Signs
Temp Pulse Resp Pulse Ox
98.1 F 55 18 100
09/18/24 13:16 09/18/24 13:16 09/18/24 13:16 09/18/24 13:16
Last Documented Vital Signs
Temp Pulse Resp BP Pulse Ox
98.1 F 55 15 165/79 95
09/18/24 13:16 09/18/24 20:45 09/18/24 20:45 09/18/24 20:00 09/18/24 20:45
MDM/Problems Addressed
Differential Diagnosis Includes:
Pneumonia, CHF
MDM/Problems Addressed:
80-year-old male with CHF exacerbation. Treated with nitroglycerin and Lasix. Admit to hospitalist.
Chronic conditions affecting care: Cardiomyopathy and Arrhythmia
Acute Exacerbation and/or Progression of Chronic Illness: Cardiomyopathy and Arrhythmia
*Radiology
Radiology exam reviewed: radiology read reviewed (Chest x-ray shows bilateral pulmonary edema)
*Pulse Oximetry
Patient hypoxic: no
*EKG
Interpreted by ED Provider?: Yes
EKG Intrepretation Date: 09/18/24
EKG Intrepretation Time: 17:14
Interpretation: abnormal
Comparison EKG: changes noted
Heart Rate: 55
Rate: bradycardiac
Rhythm: ventricular paced
Watkins: left axis deviation
Interval: normal interval
QRS Pattern: left bundle branch block
Ischemia: no ischemia
*Tie Man Interpretation
Rate: normal
Interpretation: abnormal
Heart Rate: 55
Rhythm: ventricular paced
*Critical Care Note
Total Time (30-74mins, 75-104mins- exclusive of procedures): Not Applicable
Data Reviewed
Review of Other/Old Records Reveals: Operative Reports (pacemaker 09/08/24)
Source: records
Patient Management
Social determinants of health affecting care: Living situation and Strong social support
Discussion with other providers: Hospitalist
Escalation/DeEscalation of care consider admission/obs:
admit indicated
ED Attending Note
-
Portions of this chart may have been created with voice recognition software.� Occasional wrong word or��sound alike� substitutions may have occurred due to the inherent limitations of voice recognition software.
Discharge Plan
Departure
Patient Disposition: Admit
Date of Disposition: 09/18/24
Time of Disposition: 18:15
Admit to: Telemetry
Presentation/result/management discussed w/ accepting MD/DO: Hospitalist
Patient with high blood pressure during this ER visit?: Yes
Condition: Fair
Discharge Problem:
Acute exacerbation of CHF (congestive heart failure)
Interventions
Interventions:
*Risk Screen - Suicide Last Done: 09/18/24 13:16
*General Assessment Last Done: 09/18/24 13:16
*Neglect/Abuse Screening Last Done: 09/18/24 13:16
ED- Fall Risk Assessment Last Done: 09/18/24 20:57
*ED COVID-19 Vaccine History Last Done: 09/18/24 17:37
*Nursing Disposition Last Done: 09/18/24 20:57
ED- Pulmonary Assessment Last Done: 09/18/24 16:29
Discharge Date and Time
Discharge Date/Time: 09/18/24 20:58
[2024-09-18 17:16] LABS: Urine Albumin Negative (Neg - Trace); Urine Bilirubin Negative (Negative); Urine Character Clear (Clear); Urine Color Yellow; Urine Glucose Negative (Negative); Urine Ketone Negative (Negative); Urine Leukocyte Negative (Negative); Urine Nitrite Negative (Negative); Urine Occult Blood Negative (Negative); Urine Specific Gravity 1.015 (<1.030); Urine Urobilinogen Negative (Neg - 1+)
[2024-09-18 17:46] LABS: NT-proBNP 5930 pg/ml; Troponin I 0.044 ng/ml
[2024-09-18 18:08] VITALS: BP 170/92
[2024-09-18] MEDS: LASIX 40 MG IV (18:19)
[2024-09-18] MEDS: NITRO-BID 1 INCH TOPICAL (18:25)
--- NOTE | 2024-09-18 19:02 | HPS.HSE ---
Family Physician
-
Family Physician: Patrick Puentes
Chief Complaint
-
shortness of breath
History of Present Illness
88-year-old male past medical history of AV heart block status post pacemaker in 2014, paroxysmal atrial fibrillation on Eliquis, unsustained ventricular tachycardia, PVCs, right bundle branch block, mild to moderate mitral regurgitation, mild
aortic regurgitation, nephrolithiasis, IBS, cerebral palsy, Parkinson disease, chronic amatory dysfunction with falls, BPH status post TURP, overactive bladder, recurrent UTIs, insomnia, presenting with shortness of breath and productive cough for
the past 2 weeks. He has been having chills and some sore throat. He has been having really profuse diarrhea but no diarrhea today but he did not need anything today. Denies vomiting. He occasionally having chest pain but no chest pain today.
No fever. He has increased lower extreme edema. He may have gained 2 to 3 pounds in the past 2 weeks.
He denies smoking or alcohol use.
He did have urinary burning and was started antibiotic yesterday for UTI although does not member which antibiotic.
Medical History
Past Medical History
Past Medical History: Reports Other (AV heart block status post pacemaker in 2014, paroxysmal atrial fibrillation on Eliquis, unsustained ventricular tachycardia, PVCs, right bundle branch block, mild to moderate mitral regurgitation, mild aortic
regurgitation, nephrolithiasis, IBS, cerebral palsy, Parkinson disease, chronic amatory dy)
Past Surgical History: Reports Other (Pacemaker)
Social History
Tobacco: Non-smoker
Alcohol: None
Drug: None
Family History
Family History: Not pertinent
Allergies / Home Medications
Allergies reflects when Allergies were last updated in [employer].
Home Medications with original date entered in [employer]
Allergy/Medication List:
Allergies
Allergy/AdvReac Type Severity Reaction Status Date / Time
house dust Allergy Unknown Verified 09/18/24 13:15
penicillin V Allergy 'unsure of Verified 09/18/24 13:15
reaction'
pollen extracts Allergy Unknown Verified 09/18/24 13:15
Home Medications
polyvinyl alcohol-povidone (PF) 1.4 %-0.6 % eye drops in a dropperette (Refresh Classic (PF)) 1 drp BOTH EYES QIDPRN PRN dry eyes 10/30/22
mirabegron 50 mg tablet,extended release 24 hr (Myrbetriq) 50 mg PO Q48H Urinary issue 08/04/23
apixaban 2.5 mg tablet (Eliquis) 2.5 mg PO BID Blood Clot Prevention/Tx 07/16/24
carbidopa 25 mg-levodopa 100 mg tablet 1 tab PO TID parkinson's disease 07/16/24
carvedilol 3.125 mg tablet 3.125 mg PO BID heart disease/BP 07/16/24
multivitamin with folic acid 400 mcg tablet (Tab-A-Keyana) 1 tab PO DAILY Supplement 07/16/24
Lactobacillus acidophilus 10 billion cell capsule (Probiotic) 10,000 mmu cells PO DAILY 09/08/24
melatonin 5 mg tablet 5 mg PO HS PRN insomnia 09/08/24
Review of Systems
-
History Source: Patient
Constitutional: Reports No Symptoms
EENT: Reports No Symptoms
Respiratory: Reports See HPI
Cardiac: Reports See HPI
Abdomen/GI: Reports No Symptoms
: Reports No Symptoms
Musculoskeletal: Reports No Symptoms
Skin: Reports No Symptoms
Neurological: Reports No Symptoms
Endocrine: Reports No Symptoms
Hematologic/Lymphatic: Reports No Symptoms
Psych: Reports No Symptoms
Physical Exam
Vital Signs
Vital Signs
Temp Pulse Resp BP Pulse Ox
98.1 F 55 14 170/92 95
09/18/24 13:16 09/18/24 18:30 09/18/24 18:30 09/18/24 18:25 09/18/24 18:30
Physical Exam
General: Well Developed, Well Nourished and No Apparent Distress
HEENT: NormoCephalic, Moist mucous membranes and Atraumatic
Respiratory: Clear
Cardiac: S1/S2 and Regular Rhythm; No Murmur or Rub
GI: Soft, Non Tender, Non Distended and Normal Bowel Sounds; No Organomegaly
Rectal: Deferred by Provider
Musculoskeletal: No Clubbing, No Cyanosis and No Edema
Skin: No Rash
Neuro: Nonfocal/grossly intact
Laboratory Results
-
09/18/24 13:30
09/18/24 13:30
Laboratory Results
Total Bilirubin 1.0 mg/dl (0.2-1.3) 09/18/24 13:30
AST 24 U/L (17-59) 09/18/24 13:30
ALT 12 U/L (0-50) 09/18/24 13:30
Alkaline Phosphatase 82 U/L (38-126) 09/18/24 13:30
Troponin I 0.044 ng/ml H* 09/18/24 17:04
Data Reviewed
-
Lab Data: Labs Reviewed by me
Old Records: Reviewed
Impression/Plan
-
IMPRESSION:
PLAN:
# Acute CHF exacerbation
-Chest x-ray shows pulmonary edema
-Cardiac BNP of 5900
-Check I's and O's, daily weights
-40 IV Lasix daily
-Check COVID and influenza
-Cardiology consulted
# Diarrhea concern for potential COVID versus viral infection
-No diarrhea today
-Regular diet
-Stool studies if current diarrhea
# Urinary tract infection
-Started antibiotic yesterday, does not remember which antibiotics will continue ciprofloxacin
-Urinalysis currently negative
History of AV heart block status post pacemaker
Paroxysmal atrial fibrillation
-Continue Coreg
-Continue Eliquis
Nonsustained ventricular tachycardia
History of PVCs
Right bundle branch block
Mild to moderate mitral regurgitation
Mild aortic regurgitation
Nephrolithiasis
IVS
Cerebral palsy
Parkinson's disease
-Continue carbidopa-levodopa
Chronic ambulatory dysfunction with falls
BPH status post TURP
Overactive bladder
History of recurrent UTIs
Insomnia
Full code
DVT prophylaxis�Eliquis
Cardiac diet
[2024-09-18 19:15] VITALS: BP 174/80
[2024-09-18 19:16] VITALS: BMI 26.0
[2024-09-18 19:40] LABS: COVID-19 Antigen Negative (Negative)
[2024-09-18 20:00] VITALS: BP 165/79
[2024-09-18 21:45] VITALS: BP 150/64; BMI 25.3
--- NOTE | 2024-09-18 22:00 | PTCARENOTE ---
Pt admitted to floor from ED. AAO. VSS. V-paced on the monitor. +ORELLANA lungs with rales at the bases. 95% on RA. Pt oriented to room. Call stovall within reach. Plan of care ongoing.
[2024-09-18] MEDS: CIPRO 250 MG PO (22:08)
[2024-09-19 07:31] VITALS: BP 128/75
[2024-09-19 08:05] LABS: Troponin I 0.064 ng/ml
[2024-09-19] MEDS: CIPRO 250 MG PO (08:10)
[2024-09-19] MEDS: ELIQUIS 2.5 MG PO (08:10)
[2024-09-19] MEDS: COREG 3.125 MG PO ×2 (08:10→20:31)
[2024-09-19] MEDS: THERAGRAN 1 TABLET PO (08:11)
[2024-09-19] MEDS: SINEMET 25-100 1 TABLET PO ×3 (08:11→21:56)
[2024-09-19] MEDS: LASIX 40 MG IV (08:12)
[2024-09-19 08:14] LABS: ALT (SGPT) 17 U/L (0-50); AST (SGOT) 20 U/L (17-59); Albumin 3.3 g/dl (3.5-5.0); Alkaline Phosphatase 73 U/L (38-126); Blood Urea Nitrogen 22 mg/dl (9-20); Calcium 8.6 mg/dl (8.4-10.2); Carbon Dioxide 30 mmol/L (22-30); Chloride 103 mmol/L (98-107); Estimated Creatinine Clearance 41 ml/min; Glucose 77 mg/dl (70-99); Potassium 3.8 mmol/L (3.5-5.1); Sodium 140 mmol/L (135-145); Total Bilirubin 1.2 mg/dl (0.2-1.3); Total Protein 5.7 g/dl (6.3-8.2); eGFR > 60.00
[2024-09-19 08:19] LABS: % Basophils 0.4 % (0-2); % Eosinophils 2.4 % (0-6); % Immature Granulocytes 0.4 % (0-0.5); % Lymphocytes 22.3 % (20.5-51.1); % Monocytes 12.5 % (1.7-9.3); Absolute Eosinophils 0.2 10^3/uL (0-0.7); Absolute Lymphocytes 1.6 10^3/uL (1.2-3.4); Absolute Monocytes 0.9 10^3/uL (0.1-0.6); Absolute Neutrophils 4.5 10^3/uL (1.4-6.5); Hematocrit 37.4 % (39.0-52.0); Hemoglobin 12.3 g/dL (13.0-18.0); Mean Corp Hgb Conc. 32.9 g/dL (33.0-37.0); Mean Corpuscular Volume 91.2 fL (80.0-94.0); Mean Platelet Volume 10.2 fL (7.4-10.4); Nucleated Red Blood Cells % 0 % (-); Platelet Count 194 10^3/uL (130-400); Red Cell Dist. Width 13.7 % (11.5-14.5); White Blood Cell Count 7.2 10^3/uL (4.8-10.8)
--- NOTE | 2024-09-19 11:19 | W.PN.HOSP.TC ---
Addendum entered and electronically signed by Sandie Matthews MD 09/19/24 13:40:
patient's weight is > 60kg and creatinine < 1.5 therefore will increase Eliquis dosing to 5 mg twice a day
Original Note:
Today's Communication/Plan
-
Diuresis
Stop antibiotics
PT/OT
Assessment / Plan
Assessment / Plan
88-year-old male past medical history of AV heart block status post pacemaker in 2014, paroxysmal atrial fibrillation on Eliquis, unsustained ventricular tachycardia, PVCs, right bundle branch block, mild to moderate mitral regurgitation, mild
aortic regurgitation, nephrolithiasis, IBS, cerebral palsy, Parkinson disease, chronic amatory dysfunction with falls, BPH status post TURP, overactive bladder, recurrent UTIs, insomnia, presenting with shortness of breath and productive cough for
the past 2 weeks.
PLAN:
# Acute CHF exacerbation
Shortness of Breath 2/2 above
Weakness and Deconditioning
-Flu and covid negative
-Chest x-ray shows pulmonary edema, Cardiac BNP of 5900
-Check I's and O's, daily weights
-40 IV Lasix daily - good response
-Cardiology consulted
*patient was empirically prescribed Levaquin as outpatient (seen on [facility]) with UA that showed mild inflammation - urine culture without growth, will therefore stop antibiotics
-*suspect weakness/deconditioning all related to heart failure as above
# Diarrhea concern for potential COVID versus viral infection
-No diarrhea today
-Regular diet
-Stool studies if current diarrhea
History of AV heart block status post pacemaker
Nonsustained ventricular tachycardia
History of PVCs
Right bundle branch block
Mild to moderate mitral regurgitation
Mild aortic regurgitation
Paroxysmal atrial fibrillation
-Continue Coreg
-Continue Eliquis
Nephrolithiasis
IVS
Cerebral palsy
Parkinson's disease
-Continue carbidopa-levodopa
Chronic ambulatory dysfunction with falls
-PT/OT
BPH status post TURP
Overactive bladder
History of recurrent UTIs
Insomnia
Full code
DVT prophylaxis�Eliquis
Cardiac diet
Anticipated Discharge: 24 - 48 hours
Subjective/Interval History
-
Date of Service: September 19, 2024
mildly short of breath but feeling better
no chest pain
Objective Data
-
Labs:
Laboratory Results
09/19/24
07:13
WBC 7.2
Hgb 12.3 L
Hct 37.4 L
Plt Count 194
Sodium 140
Potassium 3.8
Chloride 103
Carbon Dioxide 30
BUN 22 H
Creatinine 1.0
Glucose 77
Calcium 8.6
Total Bilirubin 1.2
AST 20
ALT 17
Alkaline Phosphatase 73
Vital Signs:
Vital Signs
Temp Pulse Resp BP Pulse Ox
98.7 F 56 18 128/75 95
09/19/24 07:31 09/19/24 08:12 09/19/24 07:31 09/19/24 08:12 09/19/24 07:31
I&O
09/18/24 09/19/24 09/20/24
06:59 06:59 06:59
Intake Total 120 / 120
Output Total 2525 / 2525
Balance -2405 / -2405
Review of Systems
-
History Source: Patient
All other systems: Reviewed and negative
Physical Exam
-
General: Comfortable and Cachectic
HEENT: Negative Oxygen
Respiratory: Clear to Auscultation
Cardiac: Regular Rhythm, S1/S2 and JVD; Negative Murmur or Rub
GI: Soft, Nontender and Nondistended
Genito-urinary: Other (clear urine in romano )
Musculoskeletal: No Edema
Neuro: Awake, Alert and No Motor Deficits
Psych: Calm
Data Reviewed
-
Diagnostic Radiology: Report Reviewed by me
Labs: Labs Reviewed by me
[2024-09-19] MEDS: KCL 40 MEQ PO (11:27)
[2024-09-19 11:36] VITALS: BP 105/62
[2024-09-19 15:45] VITALS: BP 147/69
[2024-09-19 16:45] VITALS: BP 147/69
[2024-09-19 19:00] VITALS: BP 166/80
[2024-09-19] MEDS: ELIQUIS 5 MG PO (20:31)
[2024-09-19 23:00] VITALS: BP 139/65
[2024-09-20 03:00] VITALS: BP 141/61
[2024-09-20 07:45] VITALS: BP 143/70
[2024-09-20 08:38] LABS: Blood Urea Nitrogen 28 mg/dl (9-20); Calcium 8.6 mg/dl (8.4-10.2); Carbon Dioxide 27 mmol/L (22-30); Chloride 102 mmol/L (98-107); Estimated Creatinine Clearance 41 ml/min; Glucose 78 mg/dl (70-99); Magnesium 2.1 mg/dl (1.6-2.3); Potassium 4.4 mmol/L (3.5-5.1); Sodium 139 mmol/L (135-145); eGFR > 60.00
[2024-09-20] MEDS: COREG 3.125 MG PO ×2 (08:55→20:29)
[2024-09-20] MEDS: ELIQUIS 5 MG PO ×2 (08:55→20:29)
[2024-09-20] MEDS: THERAGRAN 1 TABLET PO (08:55)
[2024-09-20] MEDS: SINEMET 25-100 1 TABLET PO ×3 (08:55→21:15)
[2024-09-20] MEDS: LASIX 40 MG IV (08:55)
--- NOTE | 2024-09-20 11:01 | W.PN.HOSP.TC ---
Today's Communication/Plan
-
TTE tomorrow
F/U cardiology recs, for now I transitioned to oral Lasix tomorrow
Assessment / Plan
Assessment / Plan
88-year-old male past medical history of AV heart block status post pacemaker in 2015, paroxysmal atrial fibrillation on Eliquis, unsustained ventricular tachycardia, PVCs, right bundle branch block, mild to moderate mitral regurgitation, mild
aortic regurgitation, nephrolithiasis, IBS, cerebral palsy, Parkinson disease, chronic amatory dysfunction with falls, BPH status post TURP, overactive bladder, recurrent UTIs, insomnia, presenting with shortness of breath and productive cough for
the past 2 weeks.
PLAN:
# Acute CHF exacerbation
Shortness of Breath 2/2 above
Weakness and Deconditioning
-Flu and covid negative
-Chest x-ray shows pulmonary edema, Cardiac BNP of 5900
-Check I's and O's, daily weights
-s/p IV diuresis - with improvement in volume status this morning - will transition to oral lasix tomorrow
-patient is not on lasix at home, TTE ordered for tomorrow
-Cardiology consulted
-PT/OT ordered
*patient was empirically prescribed Levaquin as outpatient (seen on [facility]) with UA that showed mild inflammation - urine culture without growth, will therefore stop antibiotics
-*suspect weakness/deconditioning all related to heart failure as above
# Diarrhea concern for potential COVID versus viral infection
-No diarrhea today
-Regular diet
-Stool studies if current diarrhea
History of AV heart block status post pacemaker s/p batter exchange last week
Nonsustained ventricular tachycardia
History of PVCs
Right bundle branch block
Mild to moderate mitral regurgitation
Mild aortic regurgitation
Paroxysmal atrial fibrillation
-Continue Coreg
-Continue Eliquis - *dose adjusted given renal function and weight
Nephrolithiasis
IVS
Cerebral palsy
Parkinson's disease
-Continue carbidopa-levodopa
Chronic ambulatory dysfunction with falls
-PT/OT
BPH status post TURP
Overactive bladder
History of recurrent UTIs
Insomnia
Full code
DVT prophylaxis�Eliquis
Cardiac diet
Anticipated Discharge: 24 - 48 hours
Subjective/Interval History
-
Date of Service: September 20, 2024
appears less short of breath
feeling a lot better
Objective Data
-
Labs:
Laboratory Results
09/20/24
07:29
Sodium 139
Potassium 4.4
Chloride 102
Carbon Dioxide 27
BUN 28 H
Creatinine 1.0
Glucose 78
Calcium 8.6
Vital Signs:
Vital Signs
Temp Pulse Resp BP Pulse Ox
97.7 F 55 16 143/70 95
09/20/24 07:45 09/20/24 07:45 09/20/24 07:45 09/20/24 07:45 09/20/24 07:45
I&O
09/19/24 09/20/24 09/21/24
06:59 06:59 06:59
Intake Total 120 / 120 840 / 840
Output Total 2525 / 2525 2550 / 2550
Balance -2405 / -2405 -1710 / -1710
Review of Systems
-
History Source: Patient
All other systems: Reviewed and negative
Physical Exam
-
General: Comfortable and Cachectic
HEENT: Negative Oxygen
Respiratory: Clear to Auscultation
Cardiac: Regular Rhythm and S1/S2; Negative Murmur or Rub
GI: Soft, Nontender and Nondistended
Genito-urinary: Other (clear urine in romano )
Musculoskeletal: No Edema
Neuro: Awake, Alert and No Motor Deficits
Psych: Calm
Data Reviewed
-
Diagnostic Radiology: Report Reviewed by me
Labs: Labs Reviewed by me
[2024-09-20 12:16] VITALS: BP 130/67
--- NOTE | 2024-09-20 13:50 | CON.CAR ---
Consultation
Consultation Request
Date/Time Consultation Requested: September 20, 2024
Date/Time Consultation Performed: September 20, 2024
Requesting Provider: Dr Matthews
Performing Provider: Dr Houston
Reason for Consultation: HF
Medical History
-
Chief Complaint: Dyspnea
History of Present Illness:
He was admitted with progressive dyspnea and HF. He has been losing wt with diuresis since admit and feels improved.
He was last seen by Shavon in the office Jun 2024. He was found to be in AFib and started on Eliquis. His PPM was at [facility] and he had recent generator change in Aug 2024. He is due to see Dr Pino in Sep 2024.
Past Medical history:
PAFib
PPM for CHB
Hx Cerebral palsy
RBBB
Hx Parkinsons
Hx Lyme Dz
Hx gallstones
Ambulatory dysfunction
MR
AR
Social History
Tobacco: Non-Smoker
Alcohol: None
Drug: None
Personal:
Living: With Family
Family History
Family History: Reviewed & Not Pertinent
Allergies / Home Medications
Allergy/AdvReac Type Severity Reaction Status Date / Time
house dust Allergy Unknown Verified 09/18/24 13:15
penicillin V Allergy 'unsure of Verified 09/18/24 13:15
reaction'
pollen extracts Allergy Unknown Verified 09/18/24 13:15
�Medication �Instructions �Recorded �Confirmed �Type
polyvinyl alcohol-povidone (PF) 1 drp BOTH EYES QIDPRN PRN dry eyes 10/30/22 09/18/24 History
1.4 %-0.6 % eye drops in a
dropperette (Refresh Classic (PF))
mirabegron 50 mg tablet,extended 50 mg PO Q48H Urinary issue 08/04/23 09/18/24 History
release 24 hr (Myrbetriq)
apixaban 2.5 mg tablet (Eliquis) 2.5 mg PO BID Blood Clot 07/16/24 09/18/24 History
Prevention/Tx
carbidopa 25 mg-levodopa 100 mg 1 tab PO TID parkinson's disease 07/16/24 09/18/24 History
tablet
carvedilol 3.125 mg tablet 3.125 mg PO BID heart disease/BP 07/16/24 09/18/24 History
multivitamin with folic acid 400 1 tab PO DAILY Supplement 07/16/24 09/18/24 History
mcg tablet (Tab-A-Keyana)
Lactobacillus acidophilus 10 10,000 mmu cells PO DAILY 09/08/24 09/18/24 History
billion cell capsule (Probiotic) Supplement
melatonin 5 mg tablet 5 mg PO HS PRN insomnia 09/08/24 09/18/24 History
Review of Systems
-
History Source: Patient
All other systems: Negative unless noted
Respiratory: Trouble Breathing
Physical Exam
Vital Signs
Temp Pulse Resp BP Pulse Ox
98.3 F 90 18 130/67 97
09/20/24 12:16 09/20/24 12:16 09/20/24 12:16 09/20/24 12:16 09/20/24 12:16
Physical exam:
General: No acute distress, AAOX3
Neck: Negative JVD
Heart: Regular, Negative S3 positive S1/S2, Negative S4, No murmur
Lungs: CTA b/l, negative wheezes/rales/rhonchi
Abd: Positive BS, NT/ND, neg rebound/rigidity/guarding
Ext: Negative cyanosis/clubbing/edema
Neuro: nonfocal
Lab Results
09/19/24 07:13
09/20/24 07:29
Troponin I 0.064 ng/ml H* 09/19/24 07:13
Oqb-M-Bnetxrefxqb Pept 5930 pg/ml 09/18/24 17:04
Impression / Plan
-
.
Director Hardware: Dr Pino
Impression:
HFpEF
PAFib
PPM for CHB
Hx Cerebral palsy
RBBB
Hx Parkinsons
Hx Lyme Dz
Hx gallstones
Ambulatory dysfunction
MR
AR
Plan:
Cont IV diuresis
Monitor Is and Os and daily wts and cr
wt continues to come down
Check echo to reeval EF
He had recent gen change
Outpt follow up with Dr Pino
Data Reviewed
-
EKG: Tracing Personally Visualized and interpreted
Labs: Labs Reviewed by me
Old Records: Reviewed
--- NOTE | 2024-09-20 14:16 | CM ---
Patient seen at bedside.
IA completed
Lives in a 1 story home with
PLOF: Walker
DME: Jorge, shower chair
[facility] - referral entered
[facility] in past
PT/OT to eval
PCP: Patrick Puentes
Pharmacy: [facility]
PLAN: [facility]
[2024-09-20 15:29] VITALS: BP 121/68
[2024-09-20 19:45] VITALS: BP 115/72
[2024-09-20] MEDS: MYRBETRIQ EXTENDED RELEASE 50 MG PO (20:29)
[2024-09-20 23:00] VITALS: BP 124/67
[2024-09-21 03:45] VITALS: BP 114/65
[2024-09-21 06:00] VITALS: BMI 23.4
[2024-09-21 07:20] VITALS: BP 136/68
[2024-09-21 07:47] LABS: Troponin I 0.035 ng/ml
--- NOTE | 2024-09-21 08:41 | VNURNOTE ---
Chart reviewed. Patient is current with [facility] nursing, PT, OT. Will continue to follow hospital course and DC plans.
[2024-09-21] MEDS: LASIX 40 MG PO (08:49)
[2024-09-21] MEDS: THERAGRAN 1 TABLET PO (08:49)
[2024-09-21] MEDS: COREG 3.125 MG PO ×2 (08:49→20:14)
[2024-09-21] MEDS: SINEMET 25-100 1 TABLET PO ×3 (08:49→20:06)
[2024-09-21] MEDS: ELIQUIS 5 MG PO ×2 (08:49→20:13)
[2024-09-21 09:09] LABS: Blood Urea Nitrogen 36 mg/dl (9-20); Calcium 8.8 mg/dl (8.4-10.2); Carbon Dioxide 30 mmol/L (22-30); Chloride 97 mmol/L (98-107); Estimated Creatinine Clearance 37 ml/min; Glucose 79 mg/dl (70-99); Potassium 4.3 mmol/L (3.5-5.1); Sodium 136 mmol/L (135-145); eGFR > 60.00
--- NOTE | 2024-09-21 10:11 | W.PN.CARDCBS ---
Addendum entered and electronically signed by Gunner Benton MD 09/21/24 12:06:
I saw and examined the patient.
The BLIND EYELETTER or PA's note was reviewed and I agree with the note.
Comment: General: Well developed, well nourished in NAD.
Neck: Supple, no JVD, HJR, carotids +2 B/L, no bruits bilaterally.
Heart: Non displaced PMI, RRR, no murmurs, No S3, S4, no rubs.
Lungs: scattered rhonchi
Extremities: No clubbing, cyanosis or edema bilaterally.
Neuro: Grossly nonfocal, awake, alert and oriented x3.
Stable cardiology status on p.o. Lasix. Check echocardiogram and if stable will sign off and patient will have stable cardiology status for discharge.
Original Note:
Today's Communication / Plan
-
Continue PO lasix
Await echo results
Follow up arranged
Impression / Plan
-
Spot Sprayer: Dr Pino
Impression:
Presented with dyspnea
Acute HFpEF
PAFib
PPM for CHB
s/p gene change 09/08/2024
Hx Cerebral palsy
RBBB
Hx Parkinsons
Hx Lyme Dz
Hx gallstones
Ambulatory dysfunction
MR
AR
Echo 10/17/2023: EF 62%, mild LVH, mild-moderate MR, aortic sclerosis without stenosis, mild AI, PAP 36 mmHg
Echo 09/21/2024: Study completed, report pending.
Plan:
-Presented with dyspnea. Admitted with acute heart failure exacerbation.
-Diuresed with IV lasix and transitioned to PO lasix 09/21/2024.
-Creat 1.1. Weight down to 132 lbs on 09/21. Was noted to be 143 lbs on 09/18.
-Echo completed 09/21, await results. EF preserved by prior echo 09/2023.
-BP and HR stable, continue Coreg and lasix 40mg PO daily
-Continue Eliquis 5mg BID. Follow weight closely as OP as he is borderline for dose adjustment give age 88 and weight near 60 kg.
-Follow up arranged.
HPI: He was admitted with progressive dyspnea and HF. He has been losing wt with diuresis since admit and feels improved. He was last seen by Shavon in the office Jun 2024. He was found to be in AFib and started on Eliquis. His PPM was at [facility] and he
had recent generator change in Aug 2024. He is due to see Dr Pino in Sep 2024.
Progress Note - Spot Sprayer
Subjective
Date of Service: September 21, 2024
Objective
Labs:
09/19/24 07:13
09/21/24 07:13
Labs
Hgb 12.3 g/dL (13.0-18.0) L 09/19/24 07:13
Hct 37.4 % (39.0-52.0) L 09/19/24 07:13
Plt Count 194 10^3/uL (130-400) 09/19/24 07:13
Sodium 136 mmol/L (135-145) 09/21/24 07:13
Potassium 4.3 mmol/L (3.5-5.1) 09/21/24 07:13
BUN 36 mg/dl (9-20) H 09/21/24 07:13
Creatinine 1.1 mg/dL (0.7-1.3) 09/21/24 07:13
Glucose 79 mg/dl (70-99) 09/21/24 07:13
Troponins
09/18/24 09/19/24 09/21/24
17:04 07:13 07:13
Troponin I 0.044 H* 0.064 H* 0.035 H*
Vital Signs and I&O:
Vital Signs
Temp Pulse Resp BP Pulse Ox
97.4 F 56 16 136/68 96
09/21/24 07:20 09/21/24 07:20 09/21/24 07:20 09/21/24 07:20 09/21/24 07:20
Vital Signs
Temp Pulse Resp BP Pulse Ox
97.4 F 56 16 136/68 96
09/21/24 07:20 09/21/24 07:20 09/21/24 07:20 09/21/24 07:20 09/21/24 07:20
Intake & Output
09/19/24 09/20/24 09/21/24 09/22/24
06:59 06:59 06:59 06:59
Intake Total 120 / 120 840 / 840 1000 / 1000
Output Total 2525 / 2525 2550 / 2550 3000 / 3000
Balance -2405 / -2405 -1710 / -1710 -1999 / -1999
Physical Exam
Physical Exam
GEN: No distress, awake, alert, oriented x3
HEENT: supple, anicteric, mmm
LUNGS: CTA b/l, no wheezes/rales
CV: Reg, S1/S2, no murmur
EXT: No clubbing, cyanosis, or edema
NEURO: Gross non-focal
SKIN: Warm, dry, no rash
[2024-09-21 11:15] VITALS: BP 116/65
[2024-09-21 11:37] VITALS: BP 116/65; PULSE 56; O2SAT 97
--- NOTE | 2024-09-21 13:31 | W.PN.HOSP.TC ---
Today's Communication/Plan
-
Monitor vital signs see plan
Continue with diuresis
Echo today
Discharge planning, PT/OT
Assessment / Plan
Assessment / Plan
88-year-old male past medical history of AV heart block status post pacemaker in 2015, paroxysmal atrial fibrillation on Eliquis, unsustained ventricular tachycardia, PVCs, right bundle branch block, mild to moderate mitral regurgitation, mild
aortic regurgitation, nephrolithiasis, IBS, cerebral palsy, Parkinson disease, chronic amatory dysfunction with falls, BPH status post TURP, overactive bladder, recurrent UTIs, insomnia, presenting with shortness of breath and productive cough for
the past 2 weeks.
PLAN:
# Acute CHF exacerbation
Shortness of Breath 2/2 above
Weakness and Deconditioning
-Flu and covid negative
-Chest x-ray shows pulmonary edema, Cardiac BNP of 5900
-Check I's and O's, daily weights
-s/p IV diuresis - with improvement in volume status. Transition to p.o. Lasix
-patient is not on lasix at home, echo today
-Cardiology follow
-PT/OT ordered
*patient was empirically prescribed Levaquin as outpatient (seen on [facility]) with UA that showed mild inflammation - urine culture without growth, will therefore stop antibiotics
-*suspect weakness/deconditioning all related to heart failure as above
# Diarrhea concern for potential COVID versus viral infection
-No diarrhea today
-Regular diet
-Stool studies if current diarrhea
History of AV heart block status post pacemaker s/p batter exchange last week
Nonsustained ventricular tachycardia
History of PVCs
Right bundle branch block
Mild to moderate mitral regurgitation
Mild aortic regurgitation
Paroxysmal atrial fibrillation
-Continue Coreg
-Continue Eliquis - *dose adjusted given renal function and weight
Nephrolithiasis
IVS
Cerebral palsy
Parkinson's disease
-Continue carbidopa-levodopa
Chronic ambulatory dysfunction with falls
-PT/OT
BPH status post TURP
Overactive bladder
History of recurrent UTIs
Insomnia
Full code
DVT prophylaxis�Eliquis
General: Comfortable and Cachectic
HEENT: Negative Oxygen
Respiratory: Clear to Auscultation
Cardiac: Regular Rhythm and S1/S2; Negative Murmur or Rub
GI: Soft, Nontender and Nondistended
Musculoskeletal: No Edema
Neuro: Awake, Alert and No Motor Deficits
Psych: Calm
Anticipated Discharge: Within 24 hours
Subjective/Interval History
-
Date of Service: September 21, 2024
Denies chest pain
Objective Data
-
Labs:
Laboratory Results
09/21/24
07:13
Sodium 136
Potassium 4.3
Chloride 97 L
Carbon Dioxide 30
BUN 36 H
Creatinine 1.1
Glucose 79
Calcium 8.8
Vital Signs:
Vital Signs
Temp Pulse Resp BP Pulse Ox
97.6 F 56 16 116/65 97
09/21/24 11:15 09/21/24 11:15 09/21/24 11:15 09/21/24 11:15 09/21/24 11:15
I&O
09/20/24 09/21/24 09/22/24
06:59 06:59 06:59
Intake Total 840 / 840 1000 / 1000
Output Total 2550 / 2550 3000 / 3000
Balance -1710 / -1710 -1999 / -1999
[2024-09-21 15:19] VITALS: BP 98/52
--- NOTE | 2024-09-21 15:20 | CM ---
CM reviewed chart, patient seen bedside, discussed PT recommendation of SNF. Patient requesting call to his , [facility]. CM spoke with patients , discussed SNF recommendation. declining SNF at this time, reports patient is currently
receiving services through [facility] and palliative care. reports her son will provide transportation home when patient discharged. CM will continue to follow for all discharge planning needs.
Plan; home with VN, declining SNF.
[2024-09-21 23:03] VITALS: BP 132/60
[2024-09-22 06:00] VITALS: BMI 23.3
[2024-09-22 07:48] VITALS: BP 130/68
[2024-09-22] MEDS: LASIX 40 MG PO (07:58)
[2024-09-22] MEDS: ELIQUIS 5 MG PO (07:59)
[2024-09-22] MEDS: COREG 3.125 MG PO (07:59)
[2024-09-22] MEDS: THERAGRAN 1 TABLET PO (07:59)
[2024-09-22] MEDS: SINEMET 25-100 1 TABLET PO (07:59)
--- NOTE | 2024-09-22 08:01 | W.PN.UPDATE ---
Update Note
Progress Note Update
echo unchanged. will sign off, stable cardiology status for d/c
[2024-09-22 09:05] LABS: Blood Urea Nitrogen 43 mg/dl (9-20); Calcium 8.5 mg/dl (8.4-10.2); Carbon Dioxide 34 mmol/L (22-30); Chloride 95 mmol/L (98-107); Estimated Creatinine Clearance 37 ml/min; Glucose 86 mg/dl (70-99); Sodium 138 mmol/L (135-145); eGFR > 60.00
--- NOTE | 2024-09-22 11:51 | W.PN.HOSP.TC ---
Today's Communication/Plan
-
Monitor vital signs see plan
Discussed with daughter over the phone, discharge today to home
Lasix
BMP outpatient next week with primary care provider
Time of discharge 38 minutes
Assessment / Plan
Assessment / Plan
88-year-old male past medical history of AV heart block status post pacemaker in 2014, paroxysmal atrial fibrillation on Eliquis, unsustained ventricular tachycardia, PVCs, right bundle branch block, mild to moderate mitral regurgitation, mild
aortic regurgitation, nephrolithiasis, IBS, cerebral palsy, Parkinson disease, chronic amatory dysfunction with falls, BPH status post TURP, overactive bladder, recurrent UTIs, insomnia, presenting with shortness of breath and productive cough for
the past 2 weeks.
PLAN:
# Acute CHF exacerbation
Shortness of Breath 2/2 above
Weakness and Deconditioning
-Flu and covid negative
-Chest x-ray shows pulmonary edema, Cardiac BNP of 5900
-Check I's and O's, daily weights
-s/p IV diuresis - with improvement in volume status. Transition to p.o. Lasix
-patient is not on lasix at home, echo / 7 noted. Not much change from prior. Discharge today with cardiology follow
-Cardiology follow
-PT/OT recommended SNF however patient spouse wants to go home. Discussed with daughter over the phone
Repeat BMP next week with primary care provider. Discussed with daughter
*patient was empirically prescribed Levaquin as outpatient (seen on [facility]) with UA that showed mild inflammation - urine culture without growth, will therefore stop antibiotics
-*suspect weakness/deconditioning all related to heart failure as above
# Diarrhea concern for potential COVID versus viral infection
-No diarrhea today
-Regular diet
-Stool studies if current diarrhea
History of AV heart block status post pacemaker s/p batter exchange last week
Nonsustained ventricular tachycardia
History of PVCs
Right bundle branch block
Mild to moderate mitral regurgitation
Mild aortic regurgitation
Paroxysmal atrial fibrillation
-Continue Coreg
-Continue Eliquis - *dose adjusted given renal function and weight
Nephrolithiasis
IVS
Cerebral palsy
Parkinson's disease
-Continue carbidopa-levodopa
Chronic ambulatory dysfunction with falls
-PT/OT
BPH status post TURP
Overactive bladder
History of recurrent UTIs
Insomnia
Full code
DVT prophylaxis�Eliquis
General: Comfortable and Cachectic
HEENT: Negative Oxygen
Respiratory: Clear to Auscultation
Cardiac: Regular Rhythm and S1/S2; Negative Murmur or Rub
GI: Soft, Nontender and Nondistended
Musculoskeletal: No Edema
Neuro: Awake, Alert and No Motor Deficits
Psych: Calm
Anticipated Discharge: Today
Subjective/Interval History
-
Date of Service: September 22, 2024
Denies chest pain
Objective Data
-
Labs:
Laboratory Results
09/22/24
07:08
Sodium 138
Potassium 4.0
Chloride 95 L
Carbon Dioxide 34 H
BUN 43 H
Creatinine 1.1
Glucose 86
Calcium 8.5
Vital Signs:
Vital Signs
Temp Pulse Resp BP Pulse Ox
98.2 F 56 20 130/68 94
09/22/24 07:48 09/22/24 07:48 09/22/24 07:48 09/22/24 07:59 09/22/24 07:48
I&O
09/21/24 09/22/24 09/23/24
06:59 06:59 06:59
Intake Total 1000 / 1000 540 / 540
Output Total 3000 / 3000 950 / 950
Balance -2000 / -2000 -410 / -410
--- NOTE | 2024-09-22 11:58 | W.DCSUMMARY ---
Discharge Summary
Discharge Data
Date of Admission: 09/18/24
Date of Discharge: 09/22/24
-
Pending Results: No
Hospital Course
88-year-old female with past medical history of paroxysmal atrial fibrillation, nephrolithiasis, cerebral palsy, Parkinson's disease, chronic ambulatory dysfunction, BPH, overactive bladder, insomnia, AV block status post pacemaker, nonsustained
ventricular tachycardia came to the hospital with shortness of breath known to be in acute CHF exacerbation. Patient symptoms continue to improve over time with IV Lasix which was later transitioned to p.o. Lasix prior to discharge. Echocardiogram
was done which did not show any acute changes. Patient was seen by cardiology throughout hospitalization and was instructed to follow-up with them outpatient. On discharge patient was started on 40 mg oral daily Lasix and was instructed to get
repeat BMP next week with primary care provider to monitor for his renal function. He also had some diarrhea initially which over time continue improve on its own. Patient was also eval by physical therapy who recommended SNF however patient and
his family wanted to rather go home. Once patient symptoms continue to improve along with his breathing, he was then discharged home with instructions to follow-up with all his physicians outpatient.
Discharge Plan
-
Patient Disposition: Home with Home Care
Discharge Diagnosis/Procedures: Acute congestive heart failure with preserved ejection fraction
Dyspnea
Diet: As tolerated and 2 Gram Sodium
Activity: With assistance and As tolerated
Driving Restrictions: Not until seen by your Dr
Bathing Restrictions: None
Blood Work: BMP next week with primary care provider
Specialty Instructions: Weigh Daily- Call MD for wt gain/loss 3 lbs overnight/5 lbs in 1 week
Referrals:
Patrick Puentes MD [Family Provider] - in less than 1 week
Shavon Urrutia CRNP [Specified Professional Personl] - 10/08/24 1:40 pm (You have a cardiology follow up appointment at the [facility] office. Please call with questions. )
Prescriptions:
New
apixaban 5 mg Tablet
5 mg PO BID Qty: 60 0RF
furosemide 40 mg Tablet
40 mg PO DAILY Qty: 30 0RF
Continued
Refresh Classic (PF) 1.4-0.6 % Dropperette
1 drp BOTH EYES QIDPRN PRN (Reason: dry eyes)
mirabegron [Myrbetriq] 50 mg tablet extended release 24 hr
50 mg PO Q48H
carvedilol 3.125 mg tablet
3.125 mg PO BID
carbidopa-levodopa 25-100 mg tablet
1 tab PO TID
multivitamin with folic acid [Tab-A-Keyana] 400 mcg tablet
1 tab PO DAILY
Eliquis 2.5 mg tablet
2.5 mg PO BID
Probiotic 10 billion cell Capsule
10,000 mmu cells PO DAILY
melatonin 5 mg tablet
5 mg PO HS PRN (Reason: insomnia)
Discharge Orders:
Discharge Patient (As Directed); Ordered 09/22/24
Ordered By: Tyson Valera
Discharge Date and Time
Discharge Date/Time: 09/22/24 15:00
Print Language: BRUNEIAN
--- NOTE | 2024-09-22 12:38 | CM ---
CM reviewed chart, patient for discharge today. CM placed call to patients , discussed discharge, home with [facility]. reports son will provide transportation home, requesting to be present for review of discharge paperwork. IMM verbally
reviewed with , placed in chart. CM will continue to follow for all discharge planning needs.
Plan; home with [facility], son to transport.
[2024-09-22 14:25] VITALS: BP 114/65
--- NOTE | 2024-09-22 14:45 | PTCARENOTE ---
Patient AAOx4, VSS, AVS reviewed with patient's son. all questions and concerns answered by nurse and doctor. Patient in NAD. patient prepared for d/c
== END 2024-09-22 15:00 | disposition home health service (06) | DRG 292 ==
LOC: 4 WEST ACU 19:00
PROVIDERS: Emergency Medicine; Registered Nurse; Student in an Organized Health Care Education/Training Program; ADMITTING PHYSICIAN Hospitalist; ATTENDING PHYSICIAN Internal Medicine; CONSULT PHYSICIAN Nuclear Medicine Nuclear Cardiology; EMERGENCY PHYSICIAN Emergency Medicine; FAMILY PHYSICIAN Family Medicine
DX: I50.30 Unspecified diastolic (congestive) heart failure (principal); I45.2 Bifascicular block; I47.20 Ventricular tachycardia, unspecified; N39.0 Urinary tract infection, site not specified; K58.0 Irritable bowel syndrome with diarrhea; I48.0 Paroxysmal atrial fibrillation; Z79.01 Long term (current) use of anticoagulants; G20.A1 Parkinson's disease without dyskinesia, without mention of fluctuations; G47.00 Insomnia, unspecified; Z11.52 Encounter for screening for COVID-19; Z87.442 Personal history of urinary calculi; N20.0 Calculus of kidney; G80.8 Other cerebral palsy; N32.81 Overactive bladder
CPT/HCPCS: 71046; 80048; 80053; 81003; 83735; 83880; 84484; 85025; 87502; 87811; 93005; 93306; 96374; 97163; 97167; 99285